=== PATIENT | male | born 1980 | race Caucasian/White ===

== ENCOUNTER 2018-03-10 13:07 | Emergency (ER) | payer MEDICAID ==
[~2018-03-10] VITALS: Ht 188 cm; Wt 68.5 kg
[~2018-03-10 13:07] MED LIST: AZIT250T PO; DIPH25CA83 PO; ONDA8TAB9 PO; PHEN30SP9 PO
[2018-03-10] MEDS ORDERED: normal saline 1000ML IV soln IVB ONE (13:40)
[2018-03-10 14:06] LABS: BASOPHILS % (AUTO) 0.2 % (0-1); EOSINOPHILS % (AUTO) 0.1 % (0-6); HEMATOCRIT 47.8 % (42.0-52.0); HEMOGLOBIN 16.7 g/dl (14.0-17.9); LYMPHOCYTES # (AUTO) 0.5 X10'3 (1.1-4.8); LYMPHOCYTES % (AUTO) 4.5 % (21-51); MEAN CORPUSCULAR HEMOGLOBIN 32.5 PG (27.0-31.0); MEAN CORPUSCULAR HGB CONC 34.9 % (33.0-36.5); MEAN CORPUSCULAR VOLUME 93.2 FL (78-98); MEAN PLATELET VOLUME 6.5 FL (7.4-10.4); MONOCYTES % (AUTO) 8.4 % (2-12); NEUTROPHILS # (AUTO) 10.4 X10'3 (1.8-7.7); NEUTROPHILS % (AUTO) 86.8 % (42-75); PLATELET COUNT 195 X10'3 (140-440); RED BLOOD COUNT 5.13 X10'6 (4.70-6.10); RED CELL DISTRIBUTION WIDTH 12.9 % (11.5-14.5)
[2018-03-10 14:20] LABS: ALANINE AMINOTRANSFERASE 61 U/L (12-78); ALBUMIN 3.8 G/DL (3.4-5.0); ALBUMIN/GLOBULIN RATIO 0.7 (1.1-1.5); ALKALINE PHOSPHATASE 113 IU/L (46-116); ANION GAP 14 (8-16); ASPARTATE AMINO TRANSFERASE 49 U/L (10-37); BILIRUBIN,TOTAL 0.6 MG/DL (0.1-1.0); BLOOD UREA NITROGEN 6 MG/DL (7-18); CALCIUM 10.2 MG/DL (8.5-10.1); CHLORIDE 95 MMOL/L (99-107); CREATININE 0.86 MG/DL (0.60-1.10); ETHANOL 0.088 GM/DL (0.0-0.010); GLUCOSE 133 MG/DL (70-104); POTASSIUM 4.1 MMOL/L (3.5-5.1); SODIUM 137 MMOL/L (135-145); TOTAL CARBON DIOXIDE 27.8 MMOL/L (24-32); TOTAL PROTEIN 9.1 G/DL (6.4-8.2); eGFR > 90 ML/MIN
[2018-03-10] MEDS ORDERED: AZI25OT PO (14:51)
[2018-03-10 15:43] LABS: URINE AMPHETAMINE SCREEN NEGATIVE (Neg); URINE BARBITUATE SCREEN NEGATIVE (Neg); URINE BENZODIAZEPINES SCREEN NEGATIVE (Neg); URINE CANNABINOID SCREEN POSITIVE (Neg); URINE COCAINE SCREEN NEGATIVE (Neg); URINE METHADONE SCREEN NEGATIVE (Neg); URINE OPIATE SCREEN NEGATIVE (Neg); URINE PHENCYCLIDINE SCREEN NEGATIVE (Neg)
[2018-03-10 15:47] VITALS: BP 119/88
== END 2018-03-10 15:52 | disposition home or self-care (01) ==
LOC: ER 13:07
DX: J18.9 Pneumonia, unspecified organism (principal); R91.1 Solitary pulmonary nodule; F17.200 Nicotine dependence, unspecified, uncomplicated; F12.10 Cannabis abuse, uncomplicated; Z79.899 Other long term (current) drug therapy
CPT/HCPCS: 36415; 71045; 80053; 80305; 80320; 85025; 93005; 96360; 99285; J7030

== ENCOUNTER 2018-04-01 22:51 | Emergency (ER) | payer MEDICAID ==
[~2018-04-01] VITALS: Ht 188 cm; Wt 70.2 kg
[~2018-04-01 22:51] MED LIST changes: +AZI25OT PO
[2018-04-02] MEDS ORDERED: albuterol 2.5 MG/3 ML nebule NEB ONE (00:10)
[2018-04-02 00:59] LABS: BASOPHILS # (AUTO) 0.1 X10'3 (0-0.2); BASOPHILS % (AUTO) 1.3 % (0-1); EOSINOPHILS # (AUTO) 0.2 X10'3 (0-0.9); EOSINOPHILS % (AUTO) 5.1 % (0-6); HEMATOCRIT 43.7 % (42.0-52.0); HEMOGLOBIN 14.7 g/dl (14.0-17.9); LYMPHOCYTES # (AUTO) 1.1 X10'3 (1.1-4.8); LYMPHOCYTES % (AUTO) 27.8 % (21-51); MEAN CORPUSCULAR HEMOGLOBIN 31.6 PG (27.0-31.0); MEAN CORPUSCULAR HGB CONC 33.6 % (33.0-36.5); MEAN PLATELET VOLUME 7.7 FL (7.4-10.4); MONOCYTES # (AUTO) 0.4 X10'3 (0-0.9); MONOCYTES % (AUTO) 9.9 % (2-12); NEUTROPHILS # (AUTO) 2.2 X10'3 (1.8-7.7); NEUTROPHILS % (AUTO) 55.9 % (42-75); PLATELET COUNT 139 X10'3 (140-440); RED BLOOD COUNT 4.65 X10'6 (4.70-6.10); RED CELL DISTRIBUTION WIDTH 12.9 % (11.5-14.5)
[2018-04-02 01:19] LABS: ALANINE AMINOTRANSFERASE 142 U/L (12-78); ALBUMIN 4.3 G/DL (3.4-5.0); ALBUMIN/GLOBULIN RATIO 1.1 (1.1-1.5); ALKALINE PHOSPHATASE 78 IU/L (46-116); ANION GAP 16 (8-16); ASPARTATE AMINO TRANSFERASE 124 U/L (10-37); BILIRUBIN,TOTAL 0.6 MG/DL (0.1-1.0); BLOOD UREA NITROGEN 6 MG/DL (7-18); BUN/CREATININE RATIO 8.1 (5.4-32.0); CALCIUM 9.8 MG/DL (8.5-10.1); CHLORIDE 97 MMOL/L (99-107); CREATININE 0.74 MG/DL (0.60-1.10); GLUCOSE 108 MG/DL (70-104); SODIUM 137 MMOL/L (135-145); TOTAL CARBON DIOXIDE 24.4 MMOL/L (24-32); TOTAL PROTEIN 8.3 G/DL (6.4-8.2); eGFR > 90 ML/MIN
[2018-04-02 01:41] LABS: D-DIMER 0.22 MG/L FEU (0-0.50)
[2018-04-02] MEDS ORDERED: iohexol 350MG/ML 100ml bottle IV ONE (01:52)
[2018-04-02] MEDS ORDERED: normal saline 1000ML IV soln IV ONE (02:35)
[2018-04-02] MEDS ORDERED: levoFLOXACIN-Levaquin 750MG/D5 150 ML IV ONE (02:35)
[2018-04-02] MEDS ORDERED: ondansetron/PF 4mg/2ml inj IV ONE (04:55)
[2018-04-02 05:15] VITALS: BP 125/73
[2018-04-02] MEDS ORDERED: AZIT250T PO (15:25)
[2018-04-02] MEDS ORDERED: ONDA4TAB9 PO (15:25)
== END 2018-04-02 05:21 | disposition home or self-care (01) ==
LOC: ER 22:52
DX: R06.02 Shortness of breath (principal); R05 Cough; F12.90 Cannabis use, unspecified, uncomplicated; Z79.899 Other long term (current) drug therapy
CPT/HCPCS: 36415; 71045; 71275; 80053; 83605; 83880; 85025; 85379; 87040; 94640; 94760; 96365; 96375; 99285; J1956; J2405; J7030; Q9967

== ENCOUNTER 2018-04-02 11:25 | Emergency (ER) | payer MEDICAID ==
[~2018-04-02] VITALS: Ht 188 cm; Wt 69.0 kg
[~2018-04-02 11:25] MED LIST changes: -AZI25OT PO
[2018-04-02 11:56] LABS: BASOPHILS % (AUTO) 0.4 % (0-1); EOSINOPHILS # (AUTO) 0.1 X10'3 (0-0.9); EOSINOPHILS % (AUTO) 1.5 % (0-6); HEMATOCRIT 43.5 % (42.0-52.0); HEMOGLOBIN 15.4 g/dl (14.0-17.9); LYMPHOCYTES # (AUTO) 0.5 X10'3 (1.1-4.8); LYMPHOCYTES % (AUTO) 11.8 % (21-51); MEAN CORPUSCULAR HEMOGLOBIN 32.9 PG (27.0-31.0); MEAN CORPUSCULAR HGB CONC 35.3 % (33.0-36.5); MEAN CORPUSCULAR VOLUME 93.2 FL (78-98); MEAN PLATELET VOLUME 7.3 FL (7.4-10.4); MONOCYTES # (AUTO) 0.4 X10'3 (0-0.9); MONOCYTES % (AUTO) 8.7 % (2-12); NEUTROPHILS # (AUTO) 3.6 X10'3 (1.8-7.7); NEUTROPHILS % (AUTO) 77.6 % (42-75); PLATELET COUNT 122 X10'3 (140-440); RED BLOOD COUNT 4.67 X10'6 (4.70-6.10); RED CELL DISTRIBUTION WIDTH 13.6 % (11.5-14.5); WHITE BLOOD COUNT 4.6 X10'3 (4.5-11.0)
[2018-04-02 12:05] LABS: INR 1.1 INR; PARTIAL THROMBOPLASTIN TIME 28 SECONDS (22-32); PROTHROMBIN TIME 10.9 SECONDS (9.0-12.0)
[2018-04-02 12:22] LABS: ALANINE AMINOTRANSFERASE 138 U/L (12-78); ALBUMIN 4.4 G/DL (3.4-5.0); ALKALINE PHOSPHATASE 82 IU/L (46-116); ANION GAP 13 (8-16); ASPARTATE AMINO TRANSFERASE 110 U/L (10-37); BILIRUBIN,TOTAL 1.5 MG/DL (0.1-1.0); BLOOD UREA NITROGEN 10 MG/DL (7-18); BUN/CREATININE RATIO 10.8 (5.4-32.0); CALCIUM 9.5 MG/DL (8.5-10.1); CHLORIDE 98 MMOL/L (99-107); CREATININE 0.93 MG/DL (0.60-1.10); GLUCOSE 113 MG/DL (70-104); SODIUM 140 MMOL/L (135-145); TOTAL CARBON DIOXIDE 28.6 MMOL/L (24-32); TOTAL PROTEIN 8.6 G/DL (6.4-8.2); eGFR 90 ML/MIN
[2018-04-02] MEDS ORDERED: AZIT250T PO (15:25)
[2018-04-02] MEDS ORDERED: ONDA4TAB9 PO (15:25)
[2018-04-02] MEDS ORDERED: ondansetron 4mg rapidly disintigrating tab PO ONE (15:25)
[2018-04-02] MEDS ORDERED: phenobarbital inj 260 MG in normal saline 100ml IV soln 99 ML IV STA (15:28)
[2018-04-02] MEDS ORDERED: ondansetron/PF 4mg/2ml inj IV ONE (15:30)
[2018-04-02] MEDS ORDERED: thiamine inj. 100 MG in normal saline 100ml IV soln 99 ML IV ONE (15:30)
[2018-04-02] MEDS ORDERED: normal saline 1000ML IV soln IVB ONE (15:30)
[2018-04-02] MEDS: magnesium/D5W IVPB 100 ML IV SCH ×2 (15:59→18:11)
[2018-04-02 16:02] LABS: MAGNESIUM 1.7 MG/DL (1.5-2.4)
[2018-04-02 18:55] VITALS: BP 126/77
== END 2018-04-02 19:42 | disposition home or self-care (01) ==
LOC: ER 11:26
DX: J20.9 Acute bronchitis, unspecified (principal); K52.9 Noninfective gastroenteritis and colitis, unspecified; G40.89 Other seizures; F10.230 Alcohol dependence with withdrawal, uncomplicated; F12.10 Cannabis abuse, uncomplicated; Z79.899 Other long term (current) drug therapy
CPT/HCPCS: 36415; 70450; 80053; 80320; 83735; 84484; 85025; 85610; 85730; 93005; 96365; 96366; 96367; 96368; 96375; 99285; J2405; J2560; J3411; J7030

== ENCOUNTER 2018-04-17 16:21 | Emergency (ER) | payer MEDICAID ==
[~2018-04-17] VITALS: Ht 188 cm; Wt 66.1 kg
[~2018-04-17 16:21] MED LIST changes: +ONDA4TAB9 PO
[2018-04-17 16:57] LABS: BASOPHILS % (AUTO) 0.3 % (0-1); EOSINOPHILS # (AUTO) 0.1 X10'3 (0-0.9); EOSINOPHILS % (AUTO) 1.3 % (0-6); HEMATOCRIT 42.7 % (42.0-52.0); LYMPHOCYTES # (AUTO) 0.4 X10'3 (1.1-4.8); LYMPHOCYTES % (AUTO) 8.1 % (21-51); MEAN CORPUSCULAR HEMOGLOBIN 32.8 PG (27.0-31.0); MEAN CORPUSCULAR HGB CONC 35.2 % (33.0-36.5); MEAN CORPUSCULAR VOLUME 93.2 FL (78-98); MEAN PLATELET VOLUME 7.7 FL (7.4-10.4); MONOCYTES # (AUTO) 0.4 X10'3 (0-0.9); MONOCYTES % (AUTO) 8.2 % (2-12); NEUTROPHILS # (AUTO) 4.3 X10'3 (1.8-7.7); NEUTROPHILS % (AUTO) 82.1 % (42-75); PLATELET COUNT 113 X10'3 (140-440); RED BLOOD COUNT 4.58 X10'6 (4.70-6.10); RED CELL DISTRIBUTION WIDTH 13.4 % (11.5-14.5); WHITE BLOOD COUNT 5.2 X10'3 (4.5-11.0)
[2018-04-17 17:05] LABS: PROTHROMBIN TIME 10.6 SECONDS (9.0-12.0)
[2018-04-17 17:11] LABS: ALANINE AMINOTRANSFERASE 170 U/L (12-78); ALBUMIN/GLOBULIN RATIO 1.2 (1.1-1.5); ALKALINE PHOSPHATASE 83 IU/L (46-116); ANION GAP 15 (8-16); ASPARTATE AMINO TRANSFERASE 114 U/L (10-37); BILIRUBIN,TOTAL 1.6 MG/DL (0.1-1.0); BLOOD UREA NITROGEN 24 MG/DL (7-18); BUN/CREATININE RATIO 19.2 (5.4-32.0); CALCIUM 10.8 MG/DL (8.5-10.1); CHLORIDE 89 MMOL/L (99-107); CREATININE 1.25 MG/DL (0.60-1.10); GLUCOSE 140 MG/DL (70-104); POTASSIUM 3.8 MMOL/L (3.5-5.1); SODIUM 133 MMOL/L (135-145); TOTAL CARBON DIOXIDE 28.9 MMOL/L (24-32); TOTAL PROTEIN 9.1 G/DL (6.4-8.2); eGFR 64 ML/MIN
[2018-04-17] MEDS ORDERED: meclizine 12.5mg tablet PO ONE (19:15)
[2018-04-17] MEDS ORDERED: ondansetron 4mg rapidly disintigrating tab PO ONE (19:15)
[2018-04-17 20:04] LABS: HEMOGLOBIN A1C 5.1 % (4.5-6.2)
[2018-04-17] MEDS ORDERED: normal saline 1000ml 1,000 ML IV ONE (20:15)
[2018-04-17 20:33] LABS: CLARITY,URINE CLEAR (Clear); COLOR,URINE YELLOW (Yellow); GLUCOSE, URINE NEGATIVE (Neg); KETONES,URINE 40 mg/dl (Neg); LEUKOCYTE ESTERASE ,URINE NEGATIVE (Neg); PROTEIN,URINE >=300 mg/dl (Neg)
[2018-04-17 20:44] LABS: URINE AMPHETAMINE SCREEN NEGATIVE (Neg); URINE BARBITUATE SCREEN POSITIVE (Neg); URINE BENZODIAZEPINES SCREEN NEGATIVE (Neg); URINE CANNABINOID SCREEN POSITIVE (Neg); URINE COCAINE SCREEN NEGATIVE (Neg); URINE METHADONE SCREEN NEGATIVE (Neg); URINE OPIATE SCREEN NEGATIVE (Neg); URINE PHENCYCLIDINE SCREEN NEGATIVE (Neg)
[2018-04-17 20:45] LABS: UA COLLECTION TYPE CLN CATCH MIDSTREAM
[2018-04-17 20:46] LABS: NITRITES, URINE NEGATIVE (Neg); OCCULT BLOOD,URINE TRACE-LYSED (Neg)
[2018-04-17 20:47] LABS: BACTERIA,URINE FEW /HPF (Neg); HYALINE CASTS 0-3 /LPF (NEGATIVE); RBC,URINE 0-2 /HPF (0-2); SQUAMOUS EPITHELIAL CELL,UR FEW /LPF (FEW); WBC,URINE NONE SEEN /HPF (0-4)
[2018-04-17] MEDS ORDERED: normal saline 1000ML IV soln IVB ONE (22:25)
[2018-04-17] MEDS ORDERED: ONDA4TAB9 PO (22:34)
[2018-04-17] MEDS ORDERED: MECL-111 PO (22:34)
[2018-04-17 23:05] VITALS: BP 135/80
== END 2018-04-17 23:16 | disposition home or self-care (01) ==
LOC: ER 16:22
DX: R42 Dizziness and giddiness (principal); E86.0 Dehydration; R41.0 Disorientation, unspecified; R11.2 Nausea with vomiting, unspecified; I45.81 Long QT syndrome; F12.90 Cannabis use, unspecified, uncomplicated; Z79.899 Other long term (current) drug therapy
CPT/HCPCS: 36415; 80053; 80305; 81001; 82948; 83036; 84439; 84443; 85025; 85610; 93005; 96360; 96361; 99285; J7030; J8597

== ENCOUNTER 2018-07-04 23:06 | Emergency (ER) | payer MEDICAID ==
[~2018-07-04] VITALS: Ht 188 cm; Wt 72.0 kg
[~2018-07-04 23:06] MED LIST changes: +HYDR-3965 PO; +MECL-111 PO
[2018-07-04 23:25] VITALS: BP 129/75
[2018-07-04] MEDS ORDERED: CefTRIAXone 1000mg IM Kit (w/lidocaine diluent) IM ONE (23:35)
[2018-07-04] MEDS ORDERED: clindamycin 150mg capsule PO STA (23:35)
[2018-07-04] MEDS ORDERED: CLIN150C2 PO (23:44)
[2018-07-04] MEDS ORDERED: TETanus/Pertussis (Acell)/Diphther VAC/PF (Tdap-Adult) 0.5ml syringe IMVAC ONE (23:50)
[2018-07-04] MEDS ORDERED: tetanus & diphtheria toxoid (Td) vaccine 0.5ml IMVAC ONE (23:50)
== END 2018-07-05 | disposition home or self-care (01) ==
LOC: ER 23:07
DX: L02.214 Cutaneous abscess of groin (principal); L03.314 Cellulitis of groin; F12.90 Cannabis use, unspecified, uncomplicated
CPT/HCPCS: 96372; 99283; J0696; 90715

== ENCOUNTER 2018-07-10 10:43 | Outpatient (CLI) | payer MEDICAID ==
[~2018-07-10 10:43] MED LIST changes: +CLIN150C2 PO
== END 2018-07-10 23:59 | disposition home or self-care (01) ==
LOC: RAD 10:43
PROVIDERS: ATTEND Family Medicine
DX: G40.909 Epilepsy, unspecified, not intractable, without status epilepticus (principal); R74.8 Abnormal levels of other serum enzymes; F17.200 Nicotine dependence, unspecified, uncomplicated
CPT/HCPCS: 95816

== ENCOUNTER 2018-08-14 15:43 | Emergency (ER) | payer MEDICAID ==
[~2018-08-14] VITALS: Ht 188 cm; Wt 71.0 kg
[~2018-08-14 15:43] MED LIST changes: -CLIN150C2 PO; -HYDR-3965 PO; -ONDA4TAB9 PO
[2018-08-14] MEDS ORDERED: folic acid 1mg/0.2ml inj IV ONE (15:55)
[2018-08-14] MEDS ORDERED: gabapentin 300mg capsule PO ONE (15:55)
[2018-08-14] MEDS ORDERED: LORazepam 2 mg/ml vial IV ONE (15:55)
[2018-08-14] MEDS ORDERED: normal saline 1000ML IV soln IV ONE (15:55)
[2018-08-14] MEDS ORDERED: thiamine 100mg/ml 2ml inj. IV ONE (15:55)
[2018-08-14] MEDS ORDERED: ondansetron/PF 4mg/2ml inj IV ONE (15:55)
[2018-08-14] MEDS ORDERED: GABA300C PO (16:32)
[2018-08-14] MEDS ORDERED: potassium Cl oral solution 20 MEQ/15 ML PO ONE (16:35)
[2018-08-14 16:36] LABS: BASOPHILS % (AUTO) 0.4 % (0-1); EOSINOPHILS # (AUTO) 0.2 X10'3 (0-0.9); EOSINOPHILS % (AUTO) 2.4 % (0-6); HEMATOCRIT 47.2 % (42.0-52.0); LYMPHOCYTES # (AUTO) 0.7 X10'3 (1.1-4.8); LYMPHOCYTES % (AUTO) 10.3 % (21-51); MEAN CORPUSCULAR HEMOGLOBIN 32.9 PG (27.0-31.0); MEAN CORPUSCULAR HGB CONC 33.9 % (33.0-36.5); MEAN CORPUSCULAR VOLUME 96.9 FL (78-98); MEAN PLATELET VOLUME 7.8 FL (7.4-10.4); MONOCYTES # (AUTO) 0.7 X10'3 (0-0.9); MONOCYTES % (AUTO) 10.3 % (2-12); NEUTROPHILS # (AUTO) 4.9 X10'3 (1.8-7.7); NEUTROPHILS % (AUTO) 76.6 % (42-75); PLATELET COUNT 191 X10'3 (140-440); RED BLOOD COUNT 4.87 X10'6 (4.70-6.10); RED CELL DISTRIBUTION WIDTH 13.9 % (11.5-14.5); WHITE BLOOD COUNT 6.4 X10'3 (4.5-11.0)
[2018-08-14 16:50] LABS: ALANINE AMINOTRANSFERASE 33 U/L (12-78); ALBUMIN 4.7 G/DL (3.4-5.0); ALBUMIN/GLOBULIN RATIO 1.2 (1.1-1.5); ALKALINE PHOSPHATASE 75 IU/L (46-116); ANION GAP 14 (8-16); ASPARTATE AMINO TRANSFERASE 32 U/L (10-37); BILIRUBIN,TOTAL 1.1 MG/DL (0.1-1.0); BLOOD UREA NITROGEN 9 MG/DL (7-18); BUN/CREATININE RATIO 9.6 (5.4-32.0); CALCIUM 9.8 MG/DL (8.5-10.1); CHLORIDE 98 MMOL/L (99-107); CREATININE 0.94 MG/DL (0.60-1.10); GLUCOSE 166 MG/DL (70-104); POTASSIUM 3.5 MMOL/L (3.5-5.1); SODIUM 142 MMOL/L (135-145); TOTAL CARBON DIOXIDE 30.2 MMOL/L (24-32); TOTAL PROTEIN 8.6 G/DL (6.4-8.2); eGFR 89 ML/MIN
[2018-08-14 17:35] VITALS: BP 123/99
== END 2018-08-14 17:44 | disposition home or self-care (01) ==
LOC: ER 15:44
DX: F10.239 Alcohol dependence with withdrawal, unspecified (principal); R10.9 Unspecified abdominal pain; F17.200 Nicotine dependence, unspecified, uncomplicated; F12.90 Cannabis use, unspecified, uncomplicated; Z88.8 Allergy status to other drugs, medicaments and biological substances; Z79.2 Long term (current) use of antibiotics; Y90.9 Presence of alcohol in blood, level not specified; Z79.899 Other long term (current) drug therapy
CPT/HCPCS: 36415; 80053; 85025; 96374; 96375; 99284; J2405; J3411; J3490; 96376; J2060

== ENCOUNTER 2018-08-26 23:00 | Emergency (ER) | payer MEDICAID ==
[~2018-08-26] VITALS: Ht 188 cm; Wt 75.0 kg
[~2018-08-26 23:00] MED LIST changes: +GABA300C PO
[2018-08-26 23:07] VITALS: BP 109/77
[2018-08-26] MEDS ORDERED: KEN0.1O TP (23:20)
== END 2018-08-26 23:35 | disposition home or self-care (01) ==
LOC: ER 23:01
DX: R21 Rash and other nonspecific skin eruption (principal); L53.8 Other specified erythematous conditions; F12.90 Cannabis use, unspecified, uncomplicated; Z88.8 Allergy status to other drugs, medicaments and biological substances
CPT/HCPCS: 99283

== ENCOUNTER 2019-01-25 10:28 | Emergency (ER) | payer MEDICAID ==
[~2019-01-25] VITALS: Ht 188 cm; Wt 77.0 kg
[2019-01-25] MEDS ORDERED: NAPR-56 PO (11:55)
[2019-01-25] MEDS ORDERED: TRAM50TA2 PO (11:55)
[2019-01-25] MEDS ORDERED: HYDR-4353 PO ×2 (12:00→12:01)
[2019-01-25 12:13] VITALS: BP 122/74
== END 2019-01-25 12:15 | disposition home or self-care (01) ==
LOC: ER 10:28
DX: M25.561 Pain in right knee (principal); F12.90 Cannabis use, unspecified, uncomplicated; Z88.1 Allergy status to other antibiotic agents; Z88.6 Allergy status to analgesic agent; Z79.899 Other long term (current) drug therapy; W10.8XXA Fall (on) (from) other stairs and steps, initial encounter; Y93.89 Activity, other specified; Y92.240 Courthouse as the place of occurrence of the external cause; Y99.8 Other external cause status
CPT/HCPCS: 73564; 99284

== ENCOUNTER 2019-02-06 09:15 | Emergency (ER) | payer MEDICAID ==
[~2019-02-06] VITALS: Ht 188 cm; Wt 68.8 kg
[~2019-02-06 09:15] MED LIST changes: +NAPR-56 PO; +TRAM50TA2 PO
[2019-02-06 11:40] LABS: ALANINE AMINOTRANSFERASE 235 U/L (12-78); ALBUMIN 4.9 G/DL (3.4-5.0); ALBUMIN/GLOBULIN RATIO 1.3 (1.1-1.5); ALKALINE PHOSPHATASE 87 IU/L (46-116); ANION GAP 24 (8-16); ASPARTATE AMINO TRANSFERASE 224 U/L (10-37); BILIRUBIN,TOTAL 2.1 MG/DL (0.1-1.0); BLOOD UREA NITROGEN 21 MG/DL (7-18); BUN/CREATININE RATIO 12.4 (5.4-32.0); CALCIUM 9.9 MG/DL (8.5-10.1); CHLORIDE 89 MMOL/L (99-107); CREATININE 1.69 MG/DL (0.60-1.10); GLUCOSE 103 MG/DL (70-104); LIPASE 234 U/L (73-393); MAGNESIUM 1.7 MG/DL (1.5-2.4); POTASSIUM 3.8 MMOL/L (3.5-5.1); SODIUM 137 MMOL/L (135-145); TOTAL CARBON DIOXIDE 24.3 MMOL/L (24-32); TOTAL PROTEIN 8.7 G/DL (6.4-8.2); eGFR 45 ML/MIN
[2019-02-06 12:01] LABS: BASOPHILS % (AUTO) 0.2 % (0-1); EOSINOPHILS % (AUTO) 0 % (0-6); HEMATOCRIT 48.7 % (42.0-52.0); HEMOGLOBIN 17.2 g/dl (14.0-17.9); LYMPHOCYTES # (AUTO) 0.3 X10'3 (1.1-4.8); LYMPHOCYTES % (AUTO) 4.6 % (21-51); MEAN CORPUSCULAR HEMOGLOBIN 32.3 PG (27.0-31.0); MEAN CORPUSCULAR HGB CONC 35.3 g/dL (33.0-36.5); MEAN CORPUSCULAR VOLUME 91.4 FL (78-98); MEAN PLATELET VOLUME 8.2 FL (7.4-10.4); MONOCYTES # (AUTO) 0.8 X10'3 (0-0.9); MONOCYTES % (AUTO) 10.9 % (2-12); NEUTROPHILS # (AUTO) 6.1 X10'3 (1.8-7.7); NEUTROPHILS % (AUTO) 84.3 % (42-75); PLATELET COUNT 133 X10'3 (140-440); RED BLOOD COUNT 5.33 X10'6 (4.70-6.10); RED CELL DISTRIBUTION WIDTH 13.7 % (11.5-14.5); WHITE BLOOD COUNT 7.2 X10'3 (4.5-11.0)
[2019-02-06] MEDS ORDERED: normal saline 1000ml 1,000 ML IV ONE (12:20)
[2019-02-06] MEDS ORDERED: ONDA4TAB6 PO (12:42)
--- NOTE | 2019-02-06 13:43 | NUR ---
discussed patient's drinking with him and kandice garcia patient's last regular drinking pattern was 2 days ago, patient attempted to have a beer last night despite vomiting and diarrhea patient is exhibiting signs of etoh withdrawal: shaky with intentional movement of arms, sweating, temp of 99.4, kandice agrcia aware, orders recieved still discharging patient
[2019-02-06] MEDS ORDERED: chlordiazePOXIDE 25mg capsule PO ONE (13:45)
[2019-02-06] MEDS ORDERED: ondansetron 4mg rapidly disintigrating tab PO ONE (13:45)
[2019-02-06 14:13] VITALS: BP 132/65
== END 2019-02-06 14:14 | disposition home or self-care (01) ==
LOC: ER 09:15
DX: R11.2 Nausea with vomiting, unspecified (principal); R19.7 Diarrhea, unspecified; R05 Cough; F12.90 Cannabis use, unspecified, uncomplicated; Z88.8 Allergy status to other drugs, medicaments and biological substances; Z79.899 Other long term (current) drug therapy
CPT/HCPCS: 36415; 80053; 83690; 83735; 85025; 96360; 99283; J7030

== ENCOUNTER 2019-03-29 07:44 | Emergency (ER) | payer MEDICAID ==
[~2019-03-29] VITALS: Ht 188 cm; Wt 75.0 kg
[~2019-03-29 07:44] MED LIST changes: -NAPR-56 PO; +ONDA4TAB6 PO; -TRAM50TA2 PO
[2019-03-29] MEDS ORDERED: morphine 4 MG/ML inj SYRINge IV ONE (08:15)
[2019-03-29] MEDS ORDERED: proCHLORperazine 10 MG/2 ml inj IV ONE (08:15)
[2019-03-29] MEDS ORDERED: normal saline 1000ML IV soln IVB ONE (08:15)
[2019-03-29 08:28] LABS: ALANINE AMINOTRANSFERASE 133 U/L (12-78); ALBUMIN 4.7 G/DL (3.4-5.0); ALBUMIN/GLOBULIN RATIO 1.2 (1.1-1.5); ALKALINE PHOSPHATASE 87 IU/L (46-116); AMYLASE 63 U/L (25-115); ANION GAP 13 (8-16); ASPARTATE AMINO TRANSFERASE 136 U/L (10-37); BILIRUBIN,TOTAL 1.3 MG/DL (0.1-1.0); BLOOD UREA NITROGEN 36 MG/DL (7-18); BUN/CREATININE RATIO 9.5 (5.4-32.0); CALCIUM 9.5 MG/DL (8.5-10.1); CHLORIDE 87 MMOL/L (99-107); CREATININE 3.78 MG/DL (0.60-1.10); GLUCOSE 204 MG/DL (70-104); LIPASE 1078 U/L (73-393); SODIUM 131 MMOL/L (135-145); TOTAL CARBON DIOXIDE 30.6 MMOL/L (24-32); TOTAL PROTEIN 8.7 G/DL (6.4-8.2); eGFR 18 ML/MIN
[2019-03-29 08:35] LABS: BASOPHILS # (AUTO) 0.1 X10'3 (0-0.2); BASOPHILS % (AUTO) 0.6 % (0-1); EOSINOPHILS % (AUTO) 0.2 % (0-6); HEMATOCRIT 47.8 % (42.0-52.0); HEMOGLOBIN 16.7 g/dl (14.0-17.9); LYMPHOCYTES # (AUTO) 0.5 X10'3 (1.1-4.8); LYMPHOCYTES % (AUTO) 5.7 % (21-51); MEAN CORPUSCULAR HEMOGLOBIN 33.2 PG (27.0-31.0); MEAN PLATELET VOLUME 8.2 FL (7.4-10.4); MONOCYTES % (AUTO) 10.9 % (2-12); NEUTROPHILS # (AUTO) 7.3 X10'3 (1.8-7.7); NEUTROPHILS % (AUTO) 82.6 % (42-75); PLATELET COUNT 129 X10'3 (140-440); RED BLOOD COUNT 5.03 X10'6 (4.70-6.10); RED CELL DISTRIBUTION WIDTH 13.9 % (11.5-14.5); WHITE BLOOD COUNT 8.8 X10'3 (4.5-11.0)
[2019-03-29] MEDS ORDERED: potassium Cl 10 mEq/100mL bag IV ONE (08:35)
--- NOTE | 2019-03-29 09:32 | NUR ---
Romina RN: Patient back from CT. Patient on senior training specialist, K+ infusing. Patient has warm blankets. No other needs at this time.
[2019-03-29] MEDS ORDERED: ONDA4TAB6 PO (10:33)
[2019-03-29 10:52] VITALS: BP 130/66
== END 2019-03-29 10:54 | disposition home or self-care (01) ==
LOC: ER 07:45
DX: K85.90 Acute pancreatitis without necrosis or infection, unspecified (principal); I88.0 Nonspecific mesenteric lymphadenitis; R11.10 Vomiting, unspecified; R10.84 Generalized abdominal pain; F12.90 Cannabis use, unspecified, uncomplicated; Z88.8 Allergy status to other drugs, medicaments and biological substances
CPT/HCPCS: 36415; 74176; 80053; 82150; 83690; 85025; 85610; 96361; 96374; 96375; 99284; J0780; J2270; J3480; J7030

== ENCOUNTER 2019-05-04 22:44 | Emergency (ER) | payer MEDICAID, OTHER ==
[~2019-05-04] VITALS: Ht 188 cm; Wt 72.0 kg
[~2019-05-04 22:44] MED LIST changes: +CHLO25CA10 PO
[2019-05-04] MEDS ORDERED: ondansetron/PF 4mg/2ml inj IV ONE (22:50)
[2019-05-04] MEDS ORDERED: LORazepam 2 mg/ml vial IV ONE (22:50)
[2019-05-04] MEDS ORDERED: normal saline 1000ML IV soln IVB ONE (22:50)
[2019-05-04] MEDS ORDERED: haloperidol lactate 5mg/ml inj IM ONE ×2 (22:50→23:35)
[2019-05-04] MEDS ORDERED: diphenhydrAMINE 50 mg/ml inj IV ONE (22:50)
[2019-05-04 23:19] LABS: BASOPHILS # (AUTO) 0.1 X10'3 (0-0.2); EOSINOPHILS % (AUTO) 0 % (0-6); HEMATOCRIT 44.6 % (42.0-52.0); HEMOGLOBIN 15.5 g/dl (14.0-17.9); LYMPHOCYTES # (AUTO) 0.5 X10'3 (1.1-4.8); LYMPHOCYTES % (AUTO) 7.6 % (21-51); MEAN CORPUSCULAR HEMOGLOBIN 33.4 PG (27.0-31.0); MEAN CORPUSCULAR HGB CONC 34.7 g/dL (33.0-36.5); MEAN CORPUSCULAR VOLUME 96.2 FL (78-98); MEAN PLATELET VOLUME 7.7 FL (7.4-10.4); MONOCYTES # (AUTO) 0.6 X10'3 (0-0.9); MONOCYTES % (AUTO) 8.9 % (2-12); NEUTROPHILS # (AUTO) 5.5 X10'3 (1.8-7.7); NEUTROPHILS % (AUTO) 82.5 % (42-75); PLATELET COUNT 174 X10'3 (140-440); RED BLOOD COUNT 4.63 X10'6 (4.70-6.10); RED CELL DISTRIBUTION WIDTH 13.4 % (11.5-14.5); WHITE BLOOD COUNT 6.6 X10'3 (4.5-11.0)
[2019-05-04 23:28] LABS: ALANINE AMINOTRANSFERASE 142 U/L (12-78); ALBUMIN 4.7 G/DL (3.4-5.0); ALBUMIN/GLOBULIN RATIO 1.2 (1.1-1.5); ALKALINE PHOSPHATASE 85 IU/L (46-116); ANION GAP 27 (8-16); ASPARTATE AMINO TRANSFERASE 173 U/L (10-37); BILIRUBIN,TOTAL 1.5 MG/DL (0.1-1.0); BLOOD UREA NITROGEN 11 MG/DL (7-18); BUN/CREATININE RATIO 7.9 (5.4-32.0); CALCIUM 9.8 MG/DL (8.5-10.1); CHLORIDE 93 MMOL/L (99-107); CREATININE 1.39 MG/DL (0.60-1.10); GLUCOSE 107 MG/DL (70-104); LIPASE 373 U/L (73-393); POTASSIUM 3.9 MMOL/L (3.5-5.1); SODIUM 139 MMOL/L (135-145); TOTAL CARBON DIOXIDE 19.2 MMOL/L (24-32); TOTAL PROTEIN 8.6 G/DL (6.4-8.2); eGFR 57 ML/MIN
[2019-05-05 00:17] VITALS: BP 136/87
[2019-05-05] MEDS ORDERED: PROM25TA14 PO (02:19)
== END 2019-05-05 02:31 | disposition home or self-care (01) ==
LOC: ER 22:45
DX: R11.2 Nausea with vomiting, unspecified (principal); R50.9 Fever, unspecified; F12.90 Cannabis use, unspecified, uncomplicated; F17.200 Nicotine dependence, unspecified, uncomplicated; Z88.8 Allergy status to other drugs, medicaments and biological substances; Z79.899 Other long term (current) drug therapy
CPT/HCPCS: 36415; 80053; 83690; 85025; 96372; 96374; 96375; 99283; J1200; J1630; J2060; J2405; J7030

== ENCOUNTER 2019-07-22 20:54 | Emergency (ER) | payer MEDICAID ==
[~2019-07-22] VITALS: Ht 188 cm; Wt 68.0 kg
[~2019-07-22 20:54] MED LIST changes: +PROM25TA14 PO
[2019-07-22] MEDS ORDERED: normal saline 1000ML IV soln IVB ONE (21:35)
[2019-07-22] MEDS ORDERED: pantoprazole 40 MG vial IV ONE (21:35)
[2019-07-22 22:09] LABS: BASOPHILS % (AUTO) 0.2 % (0-1); EOSINOPHILS % (AUTO) 0.4 % (0-6); HEMATOCRIT 41.4 % (42.0-52.0); HEMOGLOBIN 14.4 g/dl (14.0-17.9); LYMPHOCYTES # (AUTO) 0.7 X10'3 (1.1-4.8); LYMPHOCYTES % (AUTO) 12.6 % (21-51); MEAN CORPUSCULAR HGB CONC 34.7 g/dL (33.0-36.5); MEAN CORPUSCULAR VOLUME 98.1 FL (78-98); MONOCYTES # (AUTO) 0.8 X10'3 (0-0.9); MONOCYTES % (AUTO) 14.4 % (2-12); NEUTROPHILS # (AUTO) 3.9 X10'3 (1.8-7.7); NEUTROPHILS % (AUTO) 72.4 % (42-75); PLATELET COUNT 117 X10'3 (140-440); RED BLOOD COUNT 4.22 X10'6 (4.70-6.10); RED CELL DISTRIBUTION WIDTH 12.9 % (11.5-14.5); WHITE BLOOD COUNT 5.4 X10'3 (4.5-11.0)
[2019-07-22 22:20] LABS: PARTIAL THROMBOPLASTIN TIME 25 SECONDS (22-32)
[2019-07-22] MEDS: chlordiazePOXIDE 25mg capsule PO ONE (22:21)
[2019-07-22 22:22] LABS: ALANINE AMINOTRANSFERASE 50 U/L (12-78); ALBUMIN 4.5 G/DL (3.4-5.0); ALBUMIN/GLOBULIN RATIO 1.3 (1.1-1.5); ALKALINE PHOSPHATASE 78 IU/L (46-116); ANION GAP 13 (8-16); ASPARTATE AMINO TRANSFERASE 46 U/L (10-37); BILIRUBIN,TOTAL 0.9 MG/DL (0.1-1.0); BLOOD UREA NITROGEN 16 MG/DL (7-18); BUN/CREATININE RATIO 5.8 (5.4-32.0); CALCIUM 9.2 MG/DL (8.5-10.1); CHLORIDE 92 MMOL/L (99-107); CREATININE 2.74 MG/DL (0.60-1.10); GLUCOSE 110 MG/DL (70-104); POTASSIUM 3.3 MMOL/L (3.5-5.1); SODIUM 137 MMOL/L (135-145); TOTAL CARBON DIOXIDE 32.2 MMOL/L (24-32); TOTAL PROTEIN 8.1 G/DL (6.4-8.2); eGFR 26 ML/MIN
[2019-07-22 23:13] LABS: CLARITY,URINE CLEAR (Clear); COLOR,URINE AMBER (Yellow); GLUCOSE, URINE NEGATIVE (Neg); KETONES,URINE 15 mg/dl (Neg); LEUKOCYTE ESTERASE ,URINE NEGATIVE (Neg); NITRITES, URINE NEGATIVE (Neg); OCCULT BLOOD,URINE TRACE-INTACT (Neg); PH,URINE 6.5 (4.8-8.0); PROTEIN,URINE 100 mg/dl (Neg)
[2019-07-22 23:16] LABS: UA COLLECTION TYPE VOIDED
[2019-07-22 23:19] LABS: BACTERIA,URINE 1+ /HPF (Neg); HYALINE CASTS >30 /LPF (NEGATIVE); MUCUS STRANDS NONE SEEN /LPF (Neg); RBC,URINE 0-2 /HPF (0-2); SQUAMOUS EPITHELIAL CELL,UR MODERATE /LPF (FEW); WBC,URINE 0-4 /HPF (0-4)
[2019-07-23] MEDS ORDERED: CHLO25CA10 PO (00:34)
[2019-07-23 00:41] VITALS: BP 118/70
[2019-08-02] MEDS: chlordiazePOXIDE 25mg capsule PO ONE (12:03)
== END 2019-07-23 00:54 | disposition home or self-care (01) ==
LOC: ER 20:54
DX: F10.239 Alcohol dependence with withdrawal, unspecified (principal); R11.10 Vomiting, unspecified; R56.9 Unspecified convulsions; F12.90 Cannabis use, unspecified, uncomplicated; Z88.8 Allergy status to other drugs, medicaments and biological substances; Z79.899 Other long term (current) drug therapy; Y90.9 Presence of alcohol in blood, level not specified
CPT/HCPCS: 36415; 71045; 80053; 81001; 85025; 85610; 85730; 93005; 96361; 96374; 99284; C9113; J7030

== ENCOUNTER 2019-11-05 11:31 | Inpatient (IN) | payer MEDICAID ==
[~2019-11-05] VITALS: Ht 188 cm; Wt 77.3 kg
[~2019-11-05 11:31] MED LIST changes: -MECL-111 PO; +MECL-159 PO
[2019-11-05 12:59] LABS: BASOPHILS # (AUTO) 0.1 X10'3 (0-0.2); EOSINOPHILS # (AUTO) 0.1 X10'3 (0-0.9); EOSINOPHILS % (AUTO) 1.1 % (0-6); HEMATOCRIT 47.4 % (42.0-52.0); HEMOGLOBIN 16.2 g/dl (14.0-17.9); LYMPHOCYTES # (AUTO) 0.8 X10'3 (1.1-4.8); MEAN CORPUSCULAR HEMOGLOBIN 33.4 PG (27.0-31.0); MEAN CORPUSCULAR HGB CONC 34.2 g/dL (33.0-36.5); MEAN CORPUSCULAR VOLUME 97.7 FL (78-98); MEAN PLATELET VOLUME 7.5 FL (7.4-10.4); MONOCYTES # (AUTO) 0.3 X10'3 (0-0.9); MONOCYTES % (AUTO) 3.8 % (2-12); NEUTROPHILS # (AUTO) 6.2 X10'3 (1.8-7.7); NEUTROPHILS % (AUTO) 83.1 % (42-75); PLATELET COUNT 234 X10'3 (140-440); RED BLOOD COUNT 4.86 X10'6 (4.70-6.10); RED CELL DISTRIBUTION WIDTH 13.7 % (11.5-14.5); WHITE BLOOD COUNT 7.4 X10'3 (4.5-11.0)
[2019-11-05 13:05] LABS: D-DIMER 0.24 MG/L FEU (0-0.50); PARTIAL THROMBOPLASTIN TIME 27 SECONDS (22-32)
[2019-11-05 13:08] LABS: ALANINE AMINOTRANSFERASE 83 U/L (12-78); ALBUMIN 4.4 G/DL (3.4-5.0); ALBUMIN/GLOBULIN RATIO 1.1 (1.1-1.5); ALKALINE PHOSPHATASE 104 IU/L (46-116); ANION GAP 20 (8-16); ASPARTATE AMINO TRANSFERASE 71 U/L (10-37); BILIRUBIN,TOTAL 0.9 MG/DL (0.1-1.0); BLOOD UREA NITROGEN 7 MG/DL (7-18); BUN/CREATININE RATIO 6.9 (5.4-32.0); CALCIUM 9.4 MG/DL (8.5-10.1); CHLORIDE 100 MMOL/L (99-107); CREATININE 1.01 MG/DL (0.60-1.10); GLUCOSE 64 MG/DL (70-104); POTASSIUM 3.8 MMOL/L (3.5-5.1); SODIUM 141 MMOL/L (135-145); TOTAL CARBON DIOXIDE 20.6 MMOL/L (24-32); TOTAL PROTEIN 8.5 G/DL (6.4-8.2); eGFR 81 ML/MIN
[2019-11-05] MEDS ORDERED: normal saline 1000ML IV soln IVB ONE ×2 (13:20→15:50)
[2019-11-05 13:36] LABS: ABG BASE EXCESS -6.2 mmol/L (-2.0-3.0); ABG HCO3 17.3 mmol/L (22.0-26.0); ABG OXYGEN SATURATION 96.2 % (95-98); ABG PCO2 (T) 29.7 mmHg (35.0-45.0); ABG PH (T) 7.384 (7.350-7.450); ALLEN'S TEST Positive; FMetHb 0.2 % (0.3-1.12); FO2Hb 93.1 % (94-100); TOTAL HEMOGLOBIN 16.1 G/dl (14.0-17.9)
[2019-11-05 13:37] LABS: CLARITY,URINE CLEAR (Clear); COLOR,URINE YELLOW (Yellow); GLUCOSE, URINE NEGATIVE (Neg); KETONES,URINE 15 mg/dl (Neg); LEUKOCYTE ESTERASE ,URINE NEGATIVE (Neg); NITRITES, URINE NEGATIVE (Neg); OCCULT BLOOD,URINE SMALL (Neg); PROTEIN,URINE 100 mg/dl (Neg); UROBILINOGEN,URINE 0.2 E.U/dL (0.2-1.0)
[2019-11-05 13:39] LABS: UA COLLECTION TYPE CLN CATCH MIDSTREAM
[2019-11-05] MEDS ORDERED: iohexol 350MG/ML 100ml bottle IV ONE (13:42)
[2019-11-05 13:44] LABS: BACTERIA,URINE NONE SEEN /HPF (Neg); COARSE GRANULAR CAST 0-3 /LPF (NEGATIVE); FINE GRANULAR CAST 0-3 /LPF (NEGATIVE); HYALINE CASTS >30 /LPF (NEGATIVE); MUCUS STRANDS MODERATE /LPF (Neg); RBC,URINE 0-2 /HPF (0-2); SQUAMOUS EPITHELIAL CELL,UR FEW /LPF (FEW); TRANSITIONAL EPI CELLS,URINE FEW /HPF; WBC,URINE 0-4 /HPF (0-4)
[2019-11-05] MEDS ORDERED: NO HOME MEDS (16:04)
[2019-11-05] MEDS ORDERED: magnesium hydroxide 30ml (MOM) UD suspension PO PRN (16:05)
[2019-11-05] MEDS ORDERED: ondansetron/PF 4mg/2ml inj IV PRN (16:05)
[2019-11-05] MEDS ORDERED: morphine 2 MG/ML inj. syringe IV PRN ×2 (16:05)
[2019-11-05] MEDS ORDERED: acetaminophen 325mg tablet PO PRN ×2 (16:05)
[2019-11-05] MEDS ORDERED: mag hydrox/Alum hydrox/simeth 30ml oral suspension PO PRN (16:05)
[2019-11-05 16:41] LABS: URINE AMPHETAMINE SCREEN NEGATIVE (Neg); URINE BARBITUATE SCREEN NEGATIVE (Neg); URINE BENZODIAZEPINES SCREEN NEGATIVE (Neg); URINE CANNABINOID SCREEN POSITIVE (Neg); URINE COCAINE SCREEN NEGATIVE (Neg); URINE METHADONE SCREEN NEGATIVE (Neg); URINE OPIATE SCREEN NEGATIVE (Neg); URINE PHENCYCLIDINE SCREEN NEGATIVE (Neg)
[2019-11-05] MEDS ORDERED: ALBU18HF2 INH (16:41)
[2019-11-05 16:47] LABS: ETHANOL 0.073 GM/DL (0.0-0.010); MAGNESIUM 1.3 MG/DL (1.5-2.4)
--- NOTE | 2019-11-05 16:57 | NUR ---
Pt. states he is feeling "out of it" and "disoriented"
--- NOTE | 2019-11-05 17:08 | NUR ---
Called to give report, Ortho floor unable to take report. Primary nurse and charge nurse unavailable, told they will call back when free.
--- NOTE | 2019-11-05 17:19 | NUR ---
Patient in room ED 9. I have received report from Lencho CASTRO and had the opportunity to ask questions and assume patient care.
[2019-11-05 17:57] VITALS: BP 128/52
--- NOTE | 2019-11-05 18:17 | NUR ---
Problems reprioritized. Patient report given, questions answered & plan of care reviewed with January CASTRO.
--- NOTE | 2019-11-05 18:31 | NUR ---
Patient in room ORTHO 4015. I have received report from Carlos CASTRO and had the opportunity to ask questions and assume patient care.
[2019-11-05 19:10] VITALS: BP 112/75
[2019-11-05] MEDS ORDERED: thiamine 100mg tablet PO ONE (19:30)
[2019-11-05] MEDS: chlordiazePOXIDE 25mg capsule PO SCH (19:57)
[2019-11-05] MEDS ORDERED: ipratropium/albuterol 3ml nebule NEB PRN (21:45)
[2019-11-05] MEDS ORDERED: potassium CL 10mEq/100ml bag 100 ML IV PRN (21:50)
[2019-11-05] MEDS ORDERED: potassium Cl 20 mEq SR tablet PO PRN ×2 (21:50)
[2019-11-05] MEDS: K and/or MAG REPLACEMENT MC SCH (21:50)
[2019-11-05] MEDS ORDERED: magnesium 4gm in 100ml NS 100 ML IV PRN (21:50)
[2019-11-05 22:00] VITALS: BP 125/75
[2019-11-05] MEDS: magnesium Cl slow-release 64mg tablet PO PRN (23:42)
[2019-11-05] MEDS: guaiFENesin/codeine phos 10ml UD oral syrup PO PRN (23:42)
[2019-11-05] MEDS: HYDROcodone/acetaminophen 5mg/325mg tablet PO PRN (23:42)
[2019-11-06] MEDS: chlordiazePOXIDE 25mg capsule PO SCH ×4 (02:34→20:07)
[2019-11-06 06:00] VITALS: BP 105/64
[2019-11-06 06:00] LABS: BASOPHILS # (AUTO) 0.1 X10'3 (0-0.2); BASOPHILS % (AUTO) 0.9 % (0-1); EOSINOPHILS # (AUTO) 0.1 X10'3 (0-0.9); EOSINOPHILS % (AUTO) 2.5 % (0-6); HEMATOCRIT 38.3 % (42.0-52.0); HEMOGLOBIN 13.2 g/dl (14.0-17.9); LYMPHOCYTES # (AUTO) 1.3 X10'3 (1.1-4.8); LYMPHOCYTES % (AUTO) 22.8 % (21-51); MEAN CORPUSCULAR HEMOGLOBIN 33.5 PG (27.0-31.0); MEAN CORPUSCULAR HGB CONC 34.5 g/dL (33.0-36.5); MONOCYTES # (AUTO) 0.5 X10'3 (0-0.9); MONOCYTES % (AUTO) 8.9 % (2-12); NEUTROPHILS # (AUTO) 3.6 X10'3 (1.8-7.7); NEUTROPHILS % (AUTO) 64.9 % (42-75); PLATELET COUNT 183 X10'3 (140-440); RED BLOOD COUNT 3.95 X10'6 (4.70-6.10); RED CELL DISTRIBUTION WIDTH 13.9 % (11.5-14.5); WHITE BLOOD COUNT 5.6 X10'3 (4.5-11.0)
[2019-11-06 06:24] LABS: ALBUMIN 3.2 G/DL (3.4-5.0); ANION GAP 8 (8-16); BLOOD UREA NITROGEN 6 MG/DL (7-18); BUN/CREATININE RATIO 7.7 (5.4-32.0); CHLORIDE 106 MMOL/L (99-107); CREATININE 0.78 MG/DL (0.60-1.10); GLUCOSE 85 MG/DL (70-104); MAGNESIUM 1.3 MG/DL (1.5-2.4); POTASSIUM 3.5 MMOL/L (3.5-5.1); SODIUM 142 MMOL/L (135-145); TOTAL CARBON DIOXIDE 28.2 MMOL/L (24-32); eGFR > 90 ML/MIN
--- NOTE | 2019-11-06 06:29 | NUR ---
Problems reprioritized. Patient report given, questions answered & plan of care reviewed with BRANDEE CASTRO.
--- NOTE | 2019-11-06 06:50 | NUR ---
Patient in room ORTHO 4015. I have received report from January CASTRO and had the opportunity to ask questions and assume patient care.
[2019-11-06] MEDS: K and/or MAG REPLACEMENT MC SCH ×2 (07:11→20:00)
[2019-11-06] MEDS: magnesium Cl slow-release 64mg tablet PO PRN (08:05)
[2019-11-06] MEDS: HYDROcodone/acetaminophen 5mg/325mg tablet PO PRN ×2 (08:05→23:37)
[2019-11-06 10:00] VITALS: BP 115/72
--- NOTE | 2019-11-06 14:55 | NUR ---
Carlos [id number] Re: Remi Cuellar Pt requesting nicotine patch, he is a pack a day smoker.
[2019-11-06 18:00] VITALS: BP 110/69
--- NOTE | 2019-11-06 18:00 | NUR ---
Patient in room ORTHO 4015. I have received report from cecilia fulton and had the opportunity to ask questions and assume patient care.
[2019-11-06 21:54] VITALS: BP 92/51
[2019-11-07] MEDS: chlordiazePOXIDE 25mg capsule PO SCH ×2 (02:37→09:28)
[2019-11-07 06:00] VITALS: BP 108/68
[2019-11-07 06:19] LABS: BASOPHILS % (AUTO) 0.8 % (0-1); EOSINOPHILS # (AUTO) 0.2 X10'3 (0-0.9); EOSINOPHILS % (AUTO) 4.6 % (0-6); HEMATOCRIT 37.4 % (42.0-52.0); LYMPHOCYTES # (AUTO) 1.3 X10'3 (1.1-4.8); LYMPHOCYTES % (AUTO) 24.4 % (21-51); MEAN CORPUSCULAR HEMOGLOBIN 33.6 PG (27.0-31.0); MEAN CORPUSCULAR HGB CONC 34.7 g/dL (33.0-36.5); MEAN CORPUSCULAR VOLUME 96.9 FL (78-98); MEAN PLATELET VOLUME 8.1 FL (7.4-10.4); MONOCYTES # (AUTO) 0.5 X10'3 (0-0.9); MONOCYTES % (AUTO) 9.1 % (2-12); NEUTROPHILS # (AUTO) 3.3 X10'3 (1.8-7.7); NEUTROPHILS % (AUTO) 61.1 % (42-75); PLATELET COUNT 162 X10'3 (140-440); RED BLOOD COUNT 3.86 X10'6 (4.70-6.10); RED CELL DISTRIBUTION WIDTH 13.5 % (11.5-14.5); WHITE BLOOD COUNT 5.4 X10'3 (4.5-11.0)
--- NOTE | 2019-11-07 06:30 | NUR ---
Patient in room ORTHO 4015. I have received report from MATTHEW Collazo and had the opportunity to ask questions and assume patient care.
[2019-11-07 07:03] LABS: ALBUMIN 3.3 G/DL (3.4-5.0); ANION GAP 10 (8-16); BLOOD UREA NITROGEN 11 MG/DL (7-18); BUN/CREATININE RATIO 12.5 (5.4-32.0); CALCIUM 8.6 MG/DL (8.5-10.1); CHLORIDE 105 MMOL/L (99-107); CREATININE 0.88 MG/DL (0.60-1.10); GLUCOSE 93 MG/DL (70-104); MAGNESIUM 1.6 MG/DL (1.5-2.4); POTASSIUM 3.5 MMOL/L (3.5-5.1); SODIUM 143 MMOL/L (135-145); TOTAL CARBON DIOXIDE 27.6 MMOL/L (24-32); eGFR > 90 ML/MIN
[2019-11-07] MEDS ORDERED: levoFLOXACIN 750MG TABLET PO SCH (08:00)
[2019-11-07] MEDS: K and/or MAG REPLACEMENT MC SCH (08:00)
[2019-11-07] MEDS: guaiFENesin/codeine phos 10ml UD oral syrup PO PRN (09:34)
[2019-11-07 10:00] VITALS: BP 93/66
[2019-11-07] MEDS ORDERED: FOLI0.4T2 PO (11:30)
[2019-11-07] MEDS ORDERED: THIA100T66 PO (11:30)
[2019-11-07] MEDS ORDERED: LEVO750T21 PO (11:30)
[2019-11-07] MEDS ORDERED: NICO-631 TD (11:30)
[2019-11-07] MEDS ORDERED: nicotine 14mg patch - 24hr TD ONE (11:55)
--- NOTE | 2019-11-07 13:50 | NUR ---
Received discharge orders from Dr. Villa. Discharge medications called to [facility] on [facility] per pts request. IV LFA dc'd with cannula intact. No redness/swelling at insertion site. Discharged via ambulation to front lobby and friend picked him up in a private vehicle
== END 2019-11-07 13:50 | disposition home or self-care (01) | DRG 145 ==
LOC: ER 11:31 → ED HOLD 16:05 → ORTHO 4S 17:45 → OBSVTOIN 11-06 13:41
PROVIDERS: ADMIT Internal Medicine; ATTEND Internal Medicine
DX: J20.9 Acute bronchitis, unspecified (principal); E83.42 Hypomagnesemia; K76.0 Fatty (change of) liver, not elsewhere classified; R74.0 Nonspecific elevation of levels of transaminase and lactic acid dehydrogenase [LDH]; F12.90 Cannabis use, unspecified, uncomplicated; F17.210 Nicotine dependence, cigarettes, uncomplicated; J44.9 Chronic obstructive pulmonary disease, unspecified; Y90.3 Blood alcohol level of 60-79 mg/100 ml; F10.10 Alcohol abuse, uncomplicated
CPT/HCPCS: 36415; 36600; 71045; 71275; 80048; 80053; 80305; 80320; 81001; 82803; 82948; 83605; 83735; 83880; 84100; 84145; 85018; 85025; 85379; 85610; 85730; 87040; 87081; 87502; 87503; 93005; 94640; 94667; 94760; G0378; Q9967

== ENCOUNTER 2019-11-08 03:15 | Emergency (ER) | payer MEDICAID ==
[~2019-11-08] VITALS: Ht 188 cm; Wt 75.0 kg
[~2019-11-08 03:15] MED LIST changes: +ALBU18HF2 INH; -AZIT250T PO; -CHLO25CA10 PO; -DIPH25CA83 PO; +FOLI0.4T2 PO; -GABA300C PO; +LEVO750T21 PO; -MECL-159 PO; +NICO-631 TD; -ONDA4TAB6 PO; -ONDA8TAB9 PO; -PHEN30SP9 PO; -PROM25TA14 PO; +THIA100T66 PO
[2019-11-08 03:26] VITALS: BP 117/70
== END 2019-11-08 05:07 | disposition home or self-care (01) ==
LOC: ER 03:16
DX: L02.416 Cutaneous abscess of left lower limb (principal); F10.99 Alcohol use, unspecified with unspecified alcohol-induced disorder; F12.90 Cannabis use, unspecified, uncomplicated; Z86.69 Personal history of other diseases of the nervous system and sense organs; Z79.899 Other long term (current) drug therapy; Y90.9 Presence of alcohol in blood, level not specified
CPT/HCPCS: 99281

== ENCOUNTER 2019-11-25 14:29 | Emergency (ER) | payer MEDICAID ==
[~2019-11-25] VITALS: Ht 188 cm; Wt 70.0 kg
[~2019-11-25 14:29] MED LIST changes: -LEVO750T21 PO
[2019-11-25 14:50] VITALS: BP 115/71
[2019-11-25] MEDS ORDERED: PERM60CR19 TOP (15:28)
[2019-11-25] MEDS ORDERED: PRED20TA PO (15:29)
[2019-11-25] MEDS ORDERED: ACET-1015 PO (15:31)
[2019-11-25] MEDS ORDERED: CETI10TA18 PO (15:59)
[2019-11-30] MEDS ORDERED: AMOX500C2 PO (21:42)
[2019-11-30] MEDS ORDERED: TAM75C PO (21:42)
== END 2019-11-25 16:16 | disposition home or self-care (01) ==
LOC: ER 14:30
DX: J06.9 Acute upper respiratory infection, unspecified (principal); J44.9 Chronic obstructive pulmonary disease, unspecified; R21 Rash and other nonspecific skin eruption; F12.90 Cannabis use, unspecified, uncomplicated; Z59.0 Homelessness; Z79.899 Other long term (current) drug therapy; Z87.891 Personal history of nicotine dependence
CPT/HCPCS: 99283

== ENCOUNTER 2020-04-25 12:42 | Emergency (ER) | payer MEDICAID ==
[~2020-04-25] VITALS: Ht 175.3 cm; Wt 90.0 kg
[~2020-04-25 12:42] MED LIST changes: +CETI10TA18 PO; -FOLI0.4T2 PO; -NICO-631 TD
[2020-04-25] MEDS ORDERED: LORazepam 2 mg/ml vial IV ONE (14:35)
[2020-04-25] MEDS ORDERED: ondansetron/PF 4mg/2ml inj IV ONE (14:35)
[2020-04-25] MEDS ORDERED: normal saline 1000ML IV soln IVB ONE (14:35)
[2020-04-25 14:39] LABS: BASOPHILS # (AUTO) 0.1 X10'3 (0-0.2); BASOPHILS % (AUTO) 0.8 % (0-1); EOSINOPHILS # (AUTO) 0.3 X10'3 (0-0.9); HEMOGLOBIN 16.7 g/dl (14.0-17.9); LYMPHOCYTES % (AUTO) 14.1 % (21-51); MEAN CORPUSCULAR HGB CONC 34.9 g/dL (33.0-36.5); MEAN CORPUSCULAR VOLUME 91.8 FL (78-98); MEAN PLATELET VOLUME 7.5 FL (7.4-10.4); MONOCYTES # (AUTO) 0.6 X10'3 (0-0.9); MONOCYTES % (AUTO) 8.1 % (2-12); PLATELET COUNT 150 X10'3 (140-440); RED BLOOD COUNT 5.23 X10'6 (4.70-6.10); WHITE BLOOD COUNT 6.9 X10'3 (4.5-11.0)
[2020-04-25 15:00] LABS: ALANINE AMINOTRANSFERASE 73 U/L (12-78); ALBUMIN 4.5 G/DL (3.4-5.0); ALBUMIN/GLOBULIN RATIO 1.1 (1.1-1.5); ALKALINE PHOSPHATASE 95 IU/L (46-116); ANION GAP 16 (8-16); ASPARTATE AMINO TRANSFERASE 88 U/L (10-37); BILIRUBIN,TOTAL 1.4 MG/DL (0.1-1.0); BLOOD UREA NITROGEN 4 MG/DL (7-18); BUN/CREATININE RATIO 4.6 (5.4-32.0); CALCIUM 9.6 MG/DL (8.5-10.1); CHLORIDE 97 MMOL/L (99-107); CREATININE 0.87 MG/DL (0.60-1.10); ETHANOL 0.127 GM/DL (0.0-0.010); GLUCOSE 88 MG/DL (70-104); LIPASE 307 U/L (73-393); POTASSIUM 3.8 MMOL/L (3.5-5.1); SODIUM 138 MMOL/L (135-145); TOTAL PROTEIN 8.7 G/DL (6.4-8.2); eGFR > 90 ML/MIN
[2020-04-25 18:37] VITALS: BP 114/73
[2020-04-25] MEDS ORDERED: HYDR-3686 PO (18:44)
[2020-04-25] MEDS ORDERED: CLON-529 PO (18:44)
[2020-04-25] MEDS ORDERED: ONDA4TAB6 PO (18:45)
== END 2020-04-25 18:47 | disposition home or self-care (01) ==
LOC: ER 12:43
DX: F10.929 Alcohol use, unspecified with intoxication, unspecified (principal); R06.02 Shortness of breath; R07.9 Chest pain, unspecified; R05 Cough; R11.10 Vomiting, unspecified; J43.9 Emphysema, unspecified; F17.200 Nicotine dependence, unspecified, uncomplicated; F12.90 Cannabis use, unspecified, uncomplicated; Z86.69 Personal history of other diseases of the nervous system and sense organs; Z87.01 Personal history of pneumonia (recurrent); Z98.890 Other specified postprocedural states; Z72.89 Other problems related to lifestyle; Z59.0 Homelessness; Z79.899 Other long term (current) drug therapy
CPT/HCPCS: 36415; 71045; 80053; 80320; 83690; 84484; 85025; 93005; 96361; 96374; 96375; 99285; J2060; J2405; J7030

== ENCOUNTER 2020-05-06 12:09 | Inpatient (IN) | payer MEDICAID ==
[~2020-05-06] VITALS: Ht 188 cm; Wt 65.3 kg
[~2020-05-06 12:09] MED LIST changes: +CLON-529 PO; +HYDR-3686 PO; +ONDA4TAB6 PO
[2020-05-06] MEDS ORDERED: pantoprazole 40 MG vial IV ONE (12:30)
[2020-05-06] MEDS ORDERED: ketorolac trometh. 30mg/ml inj. IV ONE (12:30)
[2020-05-06] MEDS ORDERED: normal saline 1000ML IV soln IVB ONE (12:30)
[2020-05-06] MEDS ORDERED: ondansetron/PF 4mg/2ml inj IV ONE (12:30)
[2020-05-06] MEDS ORDERED: famotidine/PF 10 mg/ml inj IV ONE (12:30)
[2020-05-06] MEDS ORDERED: proCHLORperazine 10 MG/2 ml inj IV ONE (12:30)
[2020-05-06 12:50] LABS: BASOPHILS % (AUTO) 0.3 % (0-1); EOSINOPHILS % (AUTO) 0.5 % (0-6); HEMATOCRIT 45.7 % (42.0-52.0); HEMOGLOBIN 15.8 g/dl (14.0-17.9); LYMPHOCYTES # (AUTO) 0.6 X10'3 (1.1-4.8); LYMPHOCYTES % (AUTO) 10.8 % (21-51); MEAN CORPUSCULAR HEMOGLOBIN 32.1 PG (27.0-31.0); MEAN CORPUSCULAR HGB CONC 34.7 g/dL (33.0-36.5); MEAN CORPUSCULAR VOLUME 92.5 FL (78-98); MEAN PLATELET VOLUME 7.8 FL (7.4-10.4); MONOCYTES # (AUTO) 0.8 X10'3 (0-0.9); MONOCYTES % (AUTO) 13.8 % (2-12); NEUTROPHILS # (AUTO) 4.3 X10'3 (1.8-7.7); NEUTROPHILS % (AUTO) 74.6 % (42-75); PLATELET COUNT 171 X10'3 (140-440); RED BLOOD COUNT 4.94 X10'6 (4.70-6.10); RED CELL DISTRIBUTION WIDTH 14.4 % (11.5-14.5); WHITE BLOOD COUNT 5.8 X10'3 (4.5-11.0)
[2020-05-06 13:01] LABS: ALANINE AMINOTRANSFERASE 59 U/L (12-78); ALBUMIN 4.7 G/DL (3.4-5.0); ALBUMIN/GLOBULIN RATIO 1.1 (1.1-1.5); ALKALINE PHOSPHATASE 86 IU/L (46-116); ANION GAP 13 (8-16); ASPARTATE AMINO TRANSFERASE 53 U/L (10-37); BILIRUBIN,TOTAL 2.2 MG/DL (0.1-1.0); BLOOD UREA NITROGEN 38 MG/DL (7-18); BUN/CREATININE RATIO 8.9 (5.4-32.0); CALCIUM 9.1 MG/DL (8.5-10.1); CHLORIDE 88 MMOL/L (99-107); CREATININE 4.27 MG/DL (0.60-1.10); GLUCOSE 187 MG/DL (70-104); SODIUM 133 MMOL/L (135-145); TOTAL CARBON DIOXIDE 32.1 MMOL/L (24-32); TOTAL PROTEIN 8.8 G/DL (6.4-8.2); eGFR 15 ML/MIN
[2020-05-06 13:02] LABS: ETHANOL < 0.010 GM/DL (0.0-0.010); LIPASE 496 U/L (73-393)
[2020-05-06 13:07] LABS: POTASSIUM 2.7 MMOL/L (3.5-5.1)
[2020-05-06] MEDS ORDERED: magnesium 2GM in 50ml NS 50 ML IV ONE (13:15)
[2020-05-06] MEDS ORDERED: POTASSIUM BICARB 20meq eff tab 20 MEQ TABLET.EFF PO ONE (13:15)
[2020-05-06] MEDS ORDERED: potassium Cl 10 mEq/100mL bag IV ONE (13:15)
[2020-05-06] MEDS: normal saline 1000ml 1,000 ML IV SCH ×2 (13:58→21:39)
[2020-05-06] MEDS ORDERED: LORazepam 2 mg/ml vial IV PRN (14:00)
[2020-05-06] MEDS ORDERED: magnesium 4gm in 100ml NS 100 ML IV PRN (14:00)
[2020-05-06] MEDS ORDERED: magnesium 2GM in 50ml NS 50 ML IV PRN (14:00)
[2020-05-06] MEDS ORDERED: magnesium Cl slow-release 64mg tablet PO PRN (14:00)
[2020-05-06] MEDS ORDERED: ondansetron/PF 4mg/2ml inj IV PRN (14:00)
[2020-05-06] MEDS ORDERED: potassium CL 10mEq/100ml bag 100 ML IV PRN ×2 (14:00)
[2020-05-06] MEDS ORDERED: docusate sod 100mg capsule PO PRN (14:00)
[2020-05-06] MEDS ORDERED: acetaminophen 325mg tablet PO PRN ×2 (14:00)
[2020-05-06] MEDS ORDERED: HYDROcodone/acetaminophen 5mg/325mg tablet PO PRN (14:00)
[2020-05-06] MEDS ORDERED: LORazepam 1 MG tablet PO PRN (14:00)
[2020-05-06] MEDS ORDERED: potassium Cl 20 mEq SR tablet PO PRN (14:00)
[2020-05-06] MEDS: pantoprazole 40 MG vial IV SCH (14:25)
[2020-05-06] MEDS ORDERED: albuterol 2.5 MG/3 ML nebule NEB PRN (14:25)
[2020-05-06 15:06] LABS: CLARITY,URINE SLIGHTLY CLOUDY (Clear); COLOR,URINE YELLOW (Yellow); GLUCOSE, URINE NEGATIVE (Neg); KETONES,URINE TRACE mg/dl (Neg); LEUKOCYTE ESTERASE ,URINE NEGATIVE (Neg); NITRITES, URINE NEGATIVE (Neg); OCCULT BLOOD,URINE SMALL (Neg); PH,URINE 5.5 (4.8-8.0); PROTEIN,URINE 100 mg/dl (Neg)
[2020-05-06 15:10] VITALS: BP 117/85
[2020-05-06 15:10] LABS: UA COLLECTION TYPE URINAL
--- NOTE | 2020-05-06 15:10 | NUR ---
Pt transferred from ER to 4009b via w/c to bed. Pt awake and alert. VSS. Pt reported lower abd pain. BS Hypoactive. Pt reported black BM this early AM. Oriented pt to bed, surroundings and instructed on use of call light for assistance OOB.
[2020-05-06 15:12] LABS: AMORPHOUS URATES 1+; BACTERIA,URINE NONE SEEN /HPF (Neg); MUCUS STRANDS FEW /LPF (Neg); RBC,URINE 0-2 /HPF (0-2); SQUAMOUS EPITHELIAL CELL,UR FEW /LPF (FEW); WBC,URINE 0-4 /HPF (0-4)
[2020-05-06 15:45] LABS: URINE AMPHETAMINE SCREEN NEGATIVE (Neg); URINE BARBITUATE SCREEN NEGATIVE (Neg); URINE BENZODIAZEPINES SCREEN NEGATIVE (Neg); URINE CANNABINOID SCREEN POSITIVE (Neg); URINE COCAINE SCREEN NEGATIVE (Neg); URINE METHADONE SCREEN NEGATIVE (Neg); URINE OPIATE SCREEN NEGATIVE (Neg); URINE PHENCYCLIDINE SCREEN NEGATIVE (Neg)
[2020-05-06] MEDS: morphine 2 MG/ML inj. syringe IV PRN ×2 (15:54→21:39)
--- NOTE | 2020-05-06 16:30 | NUR ---
Report given to Brenda Paul RN. ER registration called to lock pt's wallet in safe.
[2020-05-06 18:00] VITALS: BP 113/72
[2020-05-06] MEDS: potassium Cl 20 mEq SR tablet PO PRN (18:05)
--- NOTE | 2020-05-06 18:34 | NUR ---
Patient in room ORTHO 4009. I have received report from Brenda CASTRO and had the opportunity to ask questions and assume patient care.
[2020-05-06] MEDS: nicotine 14mg patch - 24hr TD SCH (18:59)
[2020-05-06] MEDS: K and/or MAG REPLACEMENT MC SCH (20:00)
[2020-05-06] MEDS: heparin, porcine 5000 units/ml vial SQ SCH (20:02)
[2020-05-06 22:00] VITALS: BP 112/77
[2020-05-07] MEDS: potassium Cl 20 mEq SR tablet PO PRN (00:35)
[2020-05-07] MEDS: normal saline 1000ml 1,000 ML IV SCH ×4 (04:57→21:18)
[2020-05-07 06:00] VITALS: BP 124/71
--- NOTE | 2020-05-07 06:19 | NUR ---
Problems reprioritized. Patient report given, questions answered & plan of care reviewed with Arlen RN and Kyung RN.
--- NOTE | 2020-05-07 06:26 | NUR ---
Patient in room ORTHO 4009. I have received report from Ashly CASTRO and had the opportunity to ask questions and assume patient care.
[2020-05-07] MEDS: K and/or MAG REPLACEMENT MC SCH ×2 (08:00→20:00)
[2020-05-07] MEDS ORDERED: nicotine 14mg patch - 24hr TD SCH (08:00)
[2020-05-07] MEDS: pantoprazole 40 MG vial IV SCH (08:12)
[2020-05-07] MEDS: nicotine 14mg patch - 24hr TD SCH (08:13)
[2020-05-07] MEDS: heparin, porcine 5000 units/ml vial SQ SCH ×2 (08:15→19:21)
--- NOTE | 2020-05-07 08:16 | NUR ---
WAITING FOR LAB TO DRAW PT CMP AND CBC/DIFF, PT IS WALKING UP AD MARYANNE TO BATHROOM, AND IS STEADY ON FEET AT THIS TIME, CONTINUE TO MONITOR
[2020-05-07 08:52] LABS: ALANINE AMINOTRANSFERASE 70 U/L (12-78); ALBUMIN 3.6 G/DL (3.4-5.0); ALBUMIN/GLOBULIN RATIO 1.2 (1.1-1.5); ALKALINE PHOSPHATASE 55 IU/L (46-116); ANION GAP 6 (8-16); ASPARTATE AMINO TRANSFERASE 109 U/L (10-37); BASOPHILS % (AUTO) 0.9 % (0-1); BILIRUBIN,TOTAL 2.6 MG/DL (0.1-1.0); BLOOD UREA NITROGEN 34 MG/DL (7-18); BUN/CREATININE RATIO 14.8 (5.4-32.0); CALCIUM 7.7 MG/DL (8.5-10.1); CHLORIDE 99 MMOL/L (99-107); CREATININE 2.29 MG/DL (0.60-1.10); EOSINOPHILS # (AUTO) 0.1 X10'3 (0-0.9); EOSINOPHILS % (AUTO) 1.6 % (0-6); GLUCOSE 121 MG/DL (70-104); HEMATOCRIT 38.4 % (42.0-52.0); HEMOGLOBIN 12.9 g/dl (14.0-17.9); LYMPHOCYTES # (AUTO) 1.2 X10'3 (1.1-4.8); MAGNESIUM 1.8 MG/DL (1.5-2.4); MEAN CORPUSCULAR HEMOGLOBIN 31.8 PG (27.0-31.0); MEAN CORPUSCULAR HGB CONC 33.6 g/dL (33.0-36.5); MEAN CORPUSCULAR VOLUME 94.7 FL (78-98); MEAN PLATELET VOLUME 7.9 FL (7.4-10.4); MONOCYTES # (AUTO) 0.5 X10'3 (0-0.9); MONOCYTES % (AUTO) 12.2 % (2-12); NEUTROPHILS # (AUTO) 2.5 X10'3 (1.8-7.7); NEUTROPHILS % (AUTO) 58.3 % (42-75); PLATELET COUNT 118 X10'3 (140-440); POTASSIUM 3.5 MMOL/L (3.5-5.1); RED BLOOD COUNT 4.06 X10'6 (4.70-6.10); RED CELL DISTRIBUTION WIDTH 14.3 % (11.5-14.5); SODIUM 137 MMOL/L (135-145); TOTAL CARBON DIOXIDE 31.6 MMOL/L (24-32); TOTAL PROTEIN 6.6 G/DL (6.4-8.2); WHITE BLOOD COUNT 4.3 X10'3 (4.5-11.0); eGFR 32 ML/MIN
[2020-05-07 10:00] VITALS: BP 110/81
[2020-05-07 10:28] LABS: LIPASE 516 U/L (73-393)
--- NOTE | 2020-05-07 15:41 | NUR ---
Malnutrition consult: Pt admit w/ chronic etoh abuse and intractable N/V. Pt has no significant weakness, edema, and well-appearing per MD note. Pt has no visible signs of muscle/fat wasting during RD visit. Advanced to full liquids from clears. RD d/w RN regarding etoh protocol if MD agreeable given hx. At this time pt does not meet minimum malnutrition criteria. Will continue to monitor. Addendum: 05/07/20 at [address] Amended: Links added.
[2020-05-07 15:52] LABS: BASOPHILS % (AUTO) 0.9 % (0-1); EOSINOPHILS # (AUTO) 0.1 X10'3 (0-0.9); EOSINOPHILS % (AUTO) 1.4 % (0-6); HEMATOCRIT 37.6 % (42.0-52.0); HEMOGLOBIN 12.9 g/dl (14.0-17.9); LYMPHOCYTES # (AUTO) 0.9 X10'3 (1.1-4.8); MEAN CORPUSCULAR HEMOGLOBIN 32.6 PG (27.0-31.0); MEAN CORPUSCULAR HGB CONC 34.3 g/dL (33.0-36.5); MEAN CORPUSCULAR VOLUME 95.2 FL (78-98); MEAN PLATELET VOLUME 7.8 FL (7.4-10.4); MONOCYTES # (AUTO) 0.6 X10'3 (0-0.9); MONOCYTES % (AUTO) 13.2 % (2-12); NEUTROPHILS # (AUTO) 2.9 X10'3 (1.8-7.7); NEUTROPHILS % (AUTO) 64.5 % (42-75); PLATELET COUNT 125 X10'3 (140-440); RED BLOOD COUNT 3.95 X10'6 (4.70-6.10); RED CELL DISTRIBUTION WIDTH 14.1 % (11.5-14.5); WHITE BLOOD COUNT 4.5 X10'3 (4.5-11.0)
[2020-05-07 18:00] VITALS: BP 115/75
--- NOTE | 2020-05-07 18:05 | NUR ---
Patient in room ORTHO 4009. I have received report from MATTHEW Mckinley and had the opportunity to ask questions and assume patient care.
--- NOTE | 2020-05-07 18:17 | NUR ---
Problems reprioritized. Patient report given, questions answered & plan of care reviewed with Johanna CASTRO.
[2020-05-07 22:00] VITALS: BP 116/80
[2020-05-08 05:57] LABS: BASOPHILS % (AUTO) 1.3 % (0-1); EOSINOPHILS # (AUTO) 0.1 X10'3 (0-0.9); EOSINOPHILS % (AUTO) 2.6 % (0-6); HEMATOCRIT 36.4 % (42.0-52.0); HEMOGLOBIN 12.3 g/dl (14.0-17.9); LYMPHOCYTES # (AUTO) 1.2 X10'3 (1.1-4.8); LYMPHOCYTES % (AUTO) 35.5 % (21-51); MEAN CORPUSCULAR HEMOGLOBIN 32.2 PG (27.0-31.0); MEAN CORPUSCULAR HGB CONC 33.8 g/dL (33.0-36.5); MEAN CORPUSCULAR VOLUME 95.2 FL (78-98); MEAN PLATELET VOLUME 7.9 FL (7.4-10.4); MONOCYTES # (AUTO) 0.5 X10'3 (0-0.9); MONOCYTES % (AUTO) 13.8 % (2-12); NEUTROPHILS # (AUTO) 1.6 X10'3 (1.8-7.7); NEUTROPHILS % (AUTO) 46.8 % (42-75); PLATELET COUNT 112 X10'3 (140-440); RED BLOOD COUNT 3.83 X10'6 (4.70-6.10); RED CELL DISTRIBUTION WIDTH 14.1 % (11.5-14.5); WHITE BLOOD COUNT 3.4 X10'3 (4.5-11.0)
[2020-05-08] MEDS: normal saline 1000ml 1,000 ML IV SCH ×2 (05:58→09:09)
[2020-05-08 06:00] VITALS: BP 140/71
--- NOTE | 2020-05-08 06:17 | NUR ---
Problems reprioritized. Patient report given, questions answered & plan of care reviewed with MATTHEW Mckinley.
[2020-05-08 06:20] LABS: ALANINE AMINOTRANSFERASE 77 U/L (12-78); ALBUMIN 3.4 G/DL (3.4-5.0); ALBUMIN/GLOBULIN RATIO 1.1 (1.1-1.5); ALKALINE PHOSPHATASE 50 IU/L (46-116); ANION GAP 8 (8-16); ASPARTATE AMINO TRANSFERASE 86 U/L (10-37); BILIRUBIN,TOTAL 1.5 MG/DL (0.1-1.0); BLOOD UREA NITROGEN 19 MG/DL (7-18); BUN/CREATININE RATIO 13.3 (5.4-32.0); CALCIUM 8.3 MG/DL (8.5-10.1); CHLORIDE 104 MMOL/L (99-107); CREATININE 1.43 MG/DL (0.60-1.10); GLUCOSE 95 MG/DL (70-104); MAGNESIUM 1.5 MG/DL (1.5-2.4); POTASSIUM 3.6 MMOL/L (3.5-5.1); SODIUM 139 MMOL/L (135-145); TOTAL CARBON DIOXIDE 27.5 MMOL/L (24-32); TOTAL PROTEIN 6.4 G/DL (6.4-8.2); eGFR 54 ML/MIN
--- NOTE | 2020-05-08 06:22 | NUR ---
Patient in room ORTHO 4009. I have received report from Johanna CASTRO and had the opportunity to ask questions and assume patient care.
[2020-05-08] MEDS: K and/or MAG REPLACEMENT MC SCH (06:37)
[2020-05-08] MEDS: nicotine 14mg patch - 24hr TD SCH (08:57)
[2020-05-08] MEDS: pantoprazole 40 MG vial IV SCH (08:58)
[2020-05-08] MEDS: heparin, porcine 5000 units/ml vial SQ SCH (09:02)
[2020-05-08 10:00] VITALS: BP 138/86
[2020-05-08] MEDS ORDERED: PANT-47 PO (13:30)
--- NOTE | 2020-05-08 14:25 | NUR ---
PT D/C WITH INSTRUCTIONS, UNDERSTANDING OF INSTRUCTIONS AND W/ALL BELONGINGS WALKING OUT TO PRIVATE VEHICLE TO GO HOME AND F/U W/PCP
== END 2020-05-08 14:30 | disposition home or self-care (01) | DRG 422 ==
LOC: ER 12:09 → ED HOLD 13:58 → ORTHO 4S 15:03
PROVIDERS: ADMIT Internal Medicine; ATTEND Internal Medicine
DX: E86.0 Dehydration (principal); N17.0 Acute kidney failure with tubular necrosis; F10.20 Alcohol dependence, uncomplicated; E87.6 Hypokalemia; R74.0 Nonspecific elevation of levels of transaminase and lactic acid dehydrogenase [LDH]; R74.8 Abnormal levels of other serum enzymes; F12.90 Cannabis use, unspecified, uncomplicated; F17.210 Nicotine dependence, cigarettes, uncomplicated; J43.9 Emphysema, unspecified; J45.909 Unspecified asthma, uncomplicated; K29.00 Acute gastritis without bleeding; Z59.0 Homelessness; Z71.41 Alcohol abuse counseling and surveillance of alcoholic; Z71.6 Tobacco abuse counseling
CPT/HCPCS: 36415; 76775; 80053; 80305; 80320; 81001; 83690; 83735; 85025; 85610; 87081; 96361; 96374; 96375; 97110; 97116; 97161; 99285; C9113; G0378; J0780; J1644; J1885; J2270; J2405; J3475; J3480; J3490; J7030

== ENCOUNTER 2020-05-11 12:38 | Emergency (ER) | payer MEDICAID ==
[~2020-05-11] VITALS: Ht 188 cm; Wt 63.0 kg
[~2020-05-11 12:38] MED LIST changes: -CETI10TA18 PO; -CLON-529 PO; -HYDR-3686 PO; -ONDA4TAB6 PO; +PANT-47 PO; -THIA100T66 PO
[2020-05-11 13:24] VITALS: BP 135/100
== END 2020-05-11 13:26 | disposition home or self-care (01) ==
LOC: ER 12:39
DX: S30.1XXA Contusion of abdominal wall, initial encounter (principal); F12.90 Cannabis use, unspecified, uncomplicated; Z86.69 Personal history of other diseases of the nervous system and sense organs; Z87.01 Personal history of pneumonia (recurrent); Z98.890 Other specified postprocedural states; Z72.89 Other problems related to lifestyle; Z59.0 Homelessness; Z79.899 Other long term (current) drug therapy; X58.XXXA Exposure to other specified factors, initial encounter; Y93.89 Activity, other specified; Y99.8 Other external cause status; Y92.89 Other specified places as the place of occurrence of the external cause
CPT/HCPCS: 99281

== ENCOUNTER 2020-07-01 16:42 | Emergency (ER) | payer MEDICAID ==
[~2020-07-01] VITALS: Ht 188 cm; Wt 72.7 kg
[2020-07-01 17:24] LABS: BASOPHILS # (AUTO) 0.1 X10'3 (0-0.2); EOSINOPHILS # (AUTO) 0.1 X10'3 (0-0.9); LYMPHOCYTES # (AUTO) 1.6 X10'3 (1.1-4.8); MEAN CORPUSCULAR HEMOGLOBIN 33.1 PG (27.0-31.0); MONOCYTES # (AUTO) 0.7 X10'3 (0-0.9); WHITE BLOOD COUNT 5.5 X10'3 (4.5-11.0)
[2020-07-01 17:26] LABS: BASOPHILS % (AUTO) 1.5 % (0-1); EOSINOPHILS % (AUTO) 2.2 % (0-6); HEMATOCRIT 41.9 % (42.0-52.0); HEMOGLOBIN 14.6 g/dl (14.0-17.9); LYMPHOCYTES % (AUTO) 28.9 % (21-51); MEAN CORPUSCULAR HGB CONC 34.8 g/dL (33.0-36.5); MEAN CORPUSCULAR VOLUME 95.3 FL (78-98); MEAN PLATELET VOLUME 7.9 FL (7.4-10.4); MONOCYTES % (AUTO) 12.8 % (2-12); NEUTROPHILS % (AUTO) 54.6 % (42-75); PLATELET COUNT 135 X10'3 (140-440); RED CELL DISTRIBUTION WIDTH 13.7 % (11.5-14.5)
[2020-07-01 17:50] LABS: ALANINE AMINOTRANSFERASE 315 U/L (12-78); ALBUMIN 4.1 G/DL (3.4-5.0); ALBUMIN/GLOBULIN RATIO 1.1 (1.1-1.5); ALKALINE PHOSPHATASE 78 IU/L (46-116); ANION GAP 10 (8-16); ASPARTATE AMINO TRANSFERASE 287 U/L (10-37); BILIRUBIN,TOTAL 0.7 MG/DL (0.1-1.0); BLOOD UREA NITROGEN 3 MG/DL (7-18); BUN/CREATININE RATIO 4.1 (5.4-32.0); CHLORIDE 89 MMOL/L (99-107); CREATININE 0.74 MG/DL (0.60-1.10); GLUCOSE 105 MG/DL (70-104); POTASSIUM 3.5 MMOL/L (3.5-5.1); SODIUM 126 MMOL/L (135-145); TOTAL CARBON DIOXIDE 27.1 MMOL/L (24-32); TOTAL PROTEIN 7.7 G/DL (6.4-8.2); eGFR > 90 ML/MIN
[2020-07-01] MEDS ORDERED: ondansetron/PF 4mg/2ml inj IV ONE (18:00)
[2020-07-01] MEDS ORDERED: normal saline 1000ml 1,000 ML IV ONE (18:00)
[2020-07-01] MEDS ORDERED: ketorolac trometh. 30mg/ml inj. IV ONE (18:00)
[2020-07-01] MEDS ORDERED: iohexol 350MG/ML 100ml bottle IV ONE (18:02)
[2020-07-01 18:26] LABS: D-DIMER < 0.19 MG/L FEU (0-0.50)
[2020-07-01 18:32] LABS: ETHANOL 0.324 GM/DL (0.0-0.010)
[2020-07-01] MEDS ORDERED: NO HOME MEDS (18:33)
[2020-07-01 18:49] LABS: CLARITY,URINE CLEAR (Clear); COLOR,URINE YELLOW (Yellow); GLUCOSE, URINE NEGATIVE (Neg); KETONES,URINE NEGATIVE (Neg); LEUKOCYTE ESTERASE ,URINE NEGATIVE (Neg); NITRITES, URINE NEGATIVE (Neg); OCCULT BLOOD,URINE NEGATIVE (Neg); PROTEIN,URINE NEGATIVE (Neg); UROBILINOGEN,URINE 0.2 E.U/dL (0.2-1.0)
[2020-07-01 19:03] LABS: URINE AMPHETAMINE SCREEN NEGATIVE (Neg); URINE BARBITUATE SCREEN NEGATIVE (Neg); URINE BENZODIAZEPINES SCREEN NEGATIVE (Neg); URINE CANNABINOID SCREEN POSITIVE (Neg); URINE COCAINE SCREEN NEGATIVE (Neg); URINE METHADONE SCREEN NEGATIVE (Neg); URINE OPIATE SCREEN NEGATIVE (Neg); URINE PHENCYCLIDINE SCREEN NEGATIVE (Neg)
[2020-07-01 19:12] LABS: UA COLLECTION TYPE CLN CATCH MIDSTREAM
[2020-07-01] MEDS ORDERED: AZIT-63 PO (19:37)
[2020-07-01] MEDS ORDERED: azithromycin 250mg tablet PO ONE (19:40)
[2020-07-01 19:51] VITALS: BP 114/77
== END 2020-07-01 19:52 | disposition home or self-care (01) ==
LOC: ER 16:43
DX: E87.1 Hypo-osmolality and hyponatremia (principal); F10.129 Alcohol abuse with intoxication, unspecified; R55 Syncope and collapse; R51 Headache; R06.02 Shortness of breath; Y90.9 Presence of alcohol in blood, level not specified
CPT/HCPCS: 36415; 70450; 71045; 71275; 72125; 80053; 80305; 80320; 81003; 82948; 83880; 84484; 85025; 85379; 93005; 96361; 96374; 96375; 99285; J1885; J2405; J7030; Q9967

== ENCOUNTER 2020-09-30 18:54 | Emergency (ER) | payer MEDICAID ==
[~2020-09-30] VITALS: Ht 182.9 cm; Wt 80.0 kg
[~2020-09-30 18:54] MED LIST changes: -ALBU18HF2 INH; +NO HOME MEDS; -PANT-47 PO
[2020-09-30] MEDS ORDERED: ONDA8TAB65 (19:13)
[2020-09-30] MEDS ORDERED: acetaminophen 325mg tablet PO ONE (20:35)
--- NOTE | 2020-09-30 21:23 | NUR ---
jodi called for transport home to [address] Eris linares requested sandwich to go agree to ut home.
[2020-09-30 22:13] VITALS: BP 114/80
== END 2020-09-30 21:38 | disposition home or self-care (01) ==
LOC: ER 18:54
DX: S00.03XA Contusion of scalp, initial encounter (principal); F10.129 Alcohol abuse with intoxication, unspecified; R51.9 Headache, unspecified; J43.9 Emphysema, unspecified; F12.90 Cannabis use, unspecified, uncomplicated; Z86.69 Personal history of other diseases of the nervous system and sense organs; Z87.01 Personal history of pneumonia (recurrent); Z72.89 Other problems related to lifestyle; Z59.0 Homelessness; X58.XXXA Exposure to other specified factors, initial encounter; Y93.89 Activity, other specified; Y92.89 Other specified places as the place of occurrence of the external cause; Y99.8 Other external cause status
CPT/HCPCS: 70450; 99284

== ENCOUNTER 2021-05-10 03:30 | Emergency (ER) | payer MEDICAID ==
[~2021-05-10] VITALS: Ht 188 cm; Wt 68.0 kg
[~2021-05-10 03:30] MED LIST changes: +ONDA8TAB65
[2021-05-10 04:00] VITALS: BP 140/97
== END 2021-05-10 04:01 | disposition home or self-care (01) ==
LOC: ER 03:30
DX: F10.129 Alcohol abuse with intoxication, unspecified (principal); R44.0 Auditory hallucinations; R44.1 Visual hallucinations; J43.9 Emphysema, unspecified; F12.90 Cannabis use, unspecified, uncomplicated; Z72.0 Tobacco use; Z86.69 Personal history of other diseases of the nervous system and sense organs; Z87.01 Personal history of pneumonia (recurrent); Z72.89 Other problems related to lifestyle; Z59.0 Homelessness; Y90.9 Presence of alcohol in blood, level not specified
CPT/HCPCS: 99283

== ENCOUNTER 2021-08-12 02:30 | Emergency (ER) | payer MEDICAID ==
[~2021-08-12] VITALS: Ht 182.9 cm; Wt 63.6 kg
[2021-08-12] MEDS ORDERED: haloperidol lactate 5mg/ml inj ONE (03:10)
[2021-08-12] MEDS ORDERED: diphenhydrAMINE 50 mg/ml inj ONE (03:11)
[2021-08-12 03:17] LABS: BASOPHILS # (AUTO) 0.2 X10'3 (0-0.2); BASOPHILS % (AUTO) 1.4 % (0-1); EOSINOPHILS # (AUTO) 0.3 X10'3 (0-0.9); EOSINOPHILS % (AUTO) 2.9 % (0-6); HEMATOCRIT 35.6 % (42.0-52.0); HEMOGLOBIN 12.7 g/dl (14.0-17.9); LYMPHOCYTES # (AUTO) 1.8 X10'3 (1.1-4.8); LYMPHOCYTES % (AUTO) 16.2 % (21-51); MEAN CORPUSCULAR HEMOGLOBIN 34.7 PG (27.0-31.0); MEAN CORPUSCULAR HGB CONC 35.8 g/dL (33.0-36.5); MEAN CORPUSCULAR VOLUME 96.8 FL (78-98); MEAN PLATELET VOLUME 8.1 FL (7.4-10.4); MONOCYTES # (AUTO) 1.8 X10'3 (0-0.9); MONOCYTES % (AUTO) 16.4 % (2-12); NEUTROPHILS % (AUTO) 63.1 % (42-75); PLATELET COUNT 300 X10'3 (140-440); RED BLOOD COUNT 3.68 X10'6 (4.70-6.10); RED CELL DISTRIBUTION WIDTH 12.8 % (11.5-14.5); WHITE BLOOD COUNT 11.1 X10'3 (4.5-11.0)
--- NOTE | 2021-08-12 03:23 | NUR ---
PT SPITTING AROUND THE ROOM. PT NOT FOLLOWING COMMANDS, RAMBING RANDOM PHRASES AND CONFUSED.
--- NOTE | 2021-08-12 03:32 | NUR ---
UPPER EXT RESTRAINSTS APPLIED PER DR ORDER. PT SITTING IN BED SMILING AT STAFF WITH RANDOM COMMENTS. VSS. PLACED ON HEART MONITOR. BED IN LOW POSITION, DIRECT LINE OF DITE, BLANKET GIVEN.
--- NOTE | 2021-08-12 03:39 | NUR ---
PT TOLERATING UPPER EXTERMITY RESTRAINTS WELL. WILL WAIT TO APPLY LEG RESTRAINTS ONLY IF NECESSARY. MD STEVENS NOTIFIED.
[2021-08-12 03:56] LABS: ALANINE AMINOTRANSFERASE 167 U/L (12-78); ALBUMIN 3.7 G/DL (3.4-5.0); ALKALINE PHOSPHATASE 97 IU/L (46-116); ANION GAP 15 (8-16); ASPARTATE AMINO TRANSFERASE 117 U/L (10-37); BILIRUBIN,TOTAL 1.1 MG/DL (0.1-1.0); BLOOD UREA NITROGEN 5 MG/DL (7-18); BUN/CREATININE RATIO 5.1 (5.4-32.0); CALCIUM 9.2 MG/DL (8.5-10.1); CHLORIDE 92 MMOL/L (99-107); CREATININE 0.98 MG/DL (0.60-1.10); ETHANOL 0.152 GM/DL (0.0-0.010); GLUCOSE 101 MG/DL (70-104); POTASSIUM 4.9 MMOL/L (3.5-5.1); SODIUM 130 MMOL/L (135-145); TOTAL CARBON DIOXIDE 23.5 MMOL/L (24-32); TOTAL PROTEIN 7.4 G/DL (6.4-8.2); eGFR 83 ML/MIN
[2021-08-12 04:17] LABS: HYPERSEGMENTED NEUTROPHILS FEW; PLATELET ESTIMATE NORMAL; SMUDGE CELLS 1+; TOTAL CELLS COUNTED 100
[2021-08-12 04:18] LABS: ANISOCYTOSIS FEW
--- NOTE | 2021-08-12 05:29 | NUR ---
PT SOILED BED, FULL BED CHANGE. REMOVED UPPER ARM RESTRAINTS AND REPOSITIONED, PT ABLE TO STAND AT THE BEDSIDE FOR BED CHANGE AND FOLLOW SIMPLE COMMANDS. PT STATES HE WAS COLD AND MAD. WHEN ASKED WHAT HE WAS MAD ABOUT, PT DID NOT RESPOND AND STARED AT STAFF. WILL DISCUSS WITH MD REGARDING REMOVING RESTRAINTS.
--- NOTE | 2021-08-12 05:38 | NUR ---
PER MD ASSESSMENT, OK TO REMOVE RESTRAINTS. UPPER EXTREMITIES REMOVED, LOWER EXTREMITIY RESTRAINTS NEVER PLACED ON PT.
--- NOTE | 2021-08-12 05:41 | NUR ---
PT RESTING ON LEFT SIDE, NO S/S OF DISTRESS, VSS.
--- NOTE | 2021-08-12 06:38 | NUR ---
ASSUMED PT CARE. PT RESTING, EYES CLOSED. NO COMPLAINTS, NO REQUESTS. BED LOCKED AND LOW.
--- NOTE | 2021-08-12 07:23 | NUR ---
PT GOT OUT OF BED AND AMBULATED WELL W/O ASSISTANCE TO BATHROOM. PT WALKED AROUND THE ER AND WAS REDIRECTED TO ROOM. BEDSIDE. PT WAS ASKED IF HE TOOK ANY DRUGS LAST NIGH AND PT STATED "YES, I TOOK ALL OF THEM". PT WAS PROVIDED CLEAN CLOTHING. PT IS APPROPRIATE HOWEVER HE IS NOT BEING VERY COOPERATIVE WITH QUESTIONS.
--- NOTE | 2021-08-12 07:32 | NUR ---
PT PROVIDED W/ A MEAL AND A TAXI TO [facility]. PT VERBALIZED UNDERSTANDIG OF DC AND AGREES WITH PLAN TO GO TO [facility].
[2021-08-12 08:27] VITALS: BP 119/86
== END 2021-08-12 08:29 | disposition home or self-care (01) ==
LOC: ER 02:30
DX: K72.90 Hepatic failure, unspecified without coma (principal); F19.10 Other psychoactive substance abuse, uncomplicated; Z59.00 Homelessness unspecified
CPT/HCPCS: 36415; 80053; 80320; 82140; 85007; 85025; 85610; 99285; J1200; J1630

== ENCOUNTER 2021-10-22 01:30 | Emergency (ER) | payer MEDICAID ==
[~2021-10-22] VITALS: Ht 188 cm; Wt 72.0 kg
[~2021-10-22 01:30] MED LIST changes: +ONDA-104; -ONDA8TAB65
[2021-10-22 01:36] VITALS: BP 118/83
[2021-10-22] MEDS ORDERED: ondansetron 4mg rapidly disintigrating tab PO ONE (03:20)
[2021-10-22 04:01] LABS: BASOPHILS # (AUTO) 0.1 X10'3 (0-0.2); BASOPHILS % (AUTO) 0.7 % (0-1); EOSINOPHILS % (AUTO) 0.2 % (0-6); HEMATOCRIT 42.8 % (42.0-52.0); LYMPHOCYTES # (AUTO) 0.5 X10'3 (1.1-4.8); LYMPHOCYTES % (AUTO) 5.7 % (21-51); MEAN CORPUSCULAR HEMOGLOBIN 34.2 PG (27.0-31.0); MEAN CORPUSCULAR VOLUME 97.7 FL (78-98); MEAN PLATELET VOLUME 7.8 FL (7.4-10.4); MONOCYTES % (AUTO) 11.9 % (2-12); NEUTROPHILS # (AUTO) 7.2 X10'3 (1.8-7.7); NEUTROPHILS % (AUTO) 81.5 % (42-75); PLATELET COUNT 307 X10'3 (140-440); RED BLOOD COUNT 4.38 X10'6 (4.70-6.10); RED CELL DISTRIBUTION WIDTH 13.4 % (11.5-14.5); WHITE BLOOD COUNT 8.8 X10'3 (4.5-11.0)
[2021-10-22 04:17] LABS: ALANINE AMINOTRANSFERASE 31 U/L (12-78); ALBUMIN 4.8 G/DL (3.4-5.0); ALKALINE PHOSPHATASE 94 IU/L (46-116); ANION GAP 19 (8-16); ASPARTATE AMINO TRANSFERASE 36 U/L (10-37); BILIRUBIN,TOTAL 1.1 MG/DL (0.1-1.0); BLOOD UREA NITROGEN 8 MG/DL (7-18); BUN/CREATININE RATIO 4.9 (5.4-32.0); CALCIUM 10.5 MG/DL (8.5-10.1); CHLORIDE 95 MMOL/L (99-107); CREATININE 1.62 MG/DL (0.60-1.10); GLUCOSE 115 MG/DL (70-104); LIPASE 176 U/L (73-393); POTASSIUM 3.8 MMOL/L (3.5-5.1); SODIUM 140 MMOL/L (135-145); TOTAL CARBON DIOXIDE 25.9 MMOL/L (24-32); TOTAL PROTEIN 9.5 G/DL (6.4-8.2); eGFR 47 ML/MIN
[2021-10-22] MEDS ORDERED: CEPH-585 PO (05:39)
[2021-10-22] MEDS ORDERED: ONDA4TAB6 PO (05:39)
[2021-10-22] MEDS ORDERED: cephalexin 250mg capsule PO ONE (05:40)
== END 2021-10-22 06:07 | disposition home or self-care (01) ==
LOC: ER 01:31
DX: S00.01XA Abrasion of scalp, initial encounter (principal); Z20.822 Contact with and (suspected) exposure to COVID-19; R10.84 Generalized abdominal pain; R11.2 Nausea with vomiting, unspecified; G40.909 Epilepsy, unspecified, not intractable, without status epilepticus; J43.9 Emphysema, unspecified; Z87.01 Personal history of pneumonia (recurrent); F12.90 Cannabis use, unspecified, uncomplicated; Z59.00 Homelessness unspecified; Z72.89 Other problems related to lifestyle; X58.XXXA Exposure to other specified factors, initial encounter; Y93.89 Activity, other specified; Y92.89 Other specified places as the place of occurrence of the external cause; Y99.8 Other external cause status
CPT/HCPCS: 36415; 74176; 80053; 83690; 85025; 87635; 99284; C9803

== ENCOUNTER 2021-11-07 12:57 | Emergency (ER) | payer MEDICAID ==
[~2021-11-07] VITALS: Ht 188 cm; Wt 72.3 kg
[~2021-11-07 12:57] MED LIST changes: +CEPH-585 PO; +ONDA4TAB6 PO
[2021-11-07 22:14] VITALS: BP 136/100
[2021-11-07] MEDS ORDERED: chlordiazePOXIDE 25mg capsule PO ONE (22:20)
== END 2021-11-07 23:10 | disposition home or self-care (01) ==
LOC: ER 12:58
DX: F10.239 Alcohol dependence with withdrawal, unspecified (principal); F41.9 Anxiety disorder, unspecified; R11.2 Nausea with vomiting, unspecified; R10.84 Generalized abdominal pain; J43.9 Emphysema, unspecified; F12.90 Cannabis use, unspecified, uncomplicated; Z86.69 Personal history of other diseases of the nervous system and sense organs; Z72.89 Other problems related to lifestyle; Z59.00 Homelessness unspecified; Z79.2 Long term (current) use of antibiotics; Z79.899 Other long term (current) drug therapy; Y90.9 Presence of alcohol in blood, level not specified
CPT/HCPCS: 99283

== ENCOUNTER 2021-12-17 19:50 | Emergency (ER) | payer MEDICAID ==
[2021-12-17 21:26] VITALS: BP 113/83
--- NOTE | 2021-12-17 21:35 | NUR ---
PT HER FOR TOOTH PAIN, A FEW DAYS AGO IT BROKE WHILE EATING. HE IS UNABLE TO GET INTO ANY DENTIST FOR MONTHS. HE WAS SEEN AT [facility] AND THEY STARTED HIM ON ANTIBIOTICS.
[2021-12-17] MEDS ORDERED: HYDROcodone/acetaminophen 5mg/325mg tablet PO ONE (22:45)
[2021-12-17] MEDS ORDERED: HYDR-3965 PO (22:49)
== END 2021-12-17 23:14 | disposition home or self-care (01) ==
LOC: ER 19:50
DX: K08.89 Other specified disorders of teeth and supporting structures (principal); K02.9 Dental caries, unspecified; J43.9 Emphysema, unspecified; F12.90 Cannabis use, unspecified, uncomplicated; Z59.00 Homelessness unspecified; Z72.89 Other problems related to lifestyle; Z87.01 Personal history of pneumonia (recurrent); Z79.2 Long term (current) use of antibiotics; Z79.899 Other long term (current) drug therapy
CPT/HCPCS: 99283

== ENCOUNTER 2022-06-07 20:26 | Inpatient (IN) | payer MEDICAID ==
[~2022-06-07] VITALS: Ht 188 cm; Wt 77.0 kg
[2022-06-07] MEDS ORDERED: ondansetron/PF 4mg/2ml inj IV ONE (21:15)
[2022-06-07] MEDS ORDERED: morphine 4 MG/ML inj SYRINge IV ONE (21:15)
[2022-06-07] MEDS ORDERED: normal saline 1000ML IV soln IV ONE (21:15)
[2022-06-07 21:32] LABS: BASOPHILS % (AUTO) 0.1 % (0-1); EOSINOPHILS % (AUTO) 0 % (0-6); HEMOGLOBIN 16.1 g/dl (14.0-17.9); LYMPHOCYTES # (AUTO) 0.6 X10'3 (1.1-4.8); LYMPHOCYTES % (AUTO) 5.7 % (21-51); MEAN CORPUSCULAR HEMOGLOBIN 32.3 PG (27.0-31.0); MEAN CORPUSCULAR HGB CONC 34.9 g/dL (33.0-36.5); MEAN CORPUSCULAR VOLUME 92.5 FL (78-98); MEAN PLATELET VOLUME 8.6 FL (7.4-10.4); MONOCYTES # (AUTO) 1.2 X10'3 (0-0.9); MONOCYTES % (AUTO) 11.9 % (2-12); NEUTROPHILS # (AUTO) 8.2 X10'3 (1.8-7.7); NEUTROPHILS % (AUTO) 82.3 % (42-75); PLATELET COUNT 149 X10'3 (140-440); RED BLOOD COUNT 4.97 X10'6 (4.70-6.10)
[2022-06-07] MEDS ORDERED: iohexol 350MG/ML 100ml bottle IV ONE (21:40)
[2022-06-07 21:48] LABS: ALANINE AMINOTRANSFERASE 133 U/L (12-78); ALBUMIN 4.6 G/DL (3.4-5.0); ALBUMIN/GLOBULIN RATIO 1.1 (1.1-1.5); ALKALINE PHOSPHATASE 106 IU/L (46-116); ANION GAP 14 (8-16); ASPARTATE AMINO TRANSFERASE 142 U/L (10-37); BILIRUBIN,TOTAL 1.9 MG/DL (0.1-1.0); BLOOD UREA NITROGEN 29 MG/DL (7-18); BUN/CREATININE RATIO 6.9 (5.4-32.0); CALCIUM 8.9 MG/DL (8.5-10.1); CHLORIDE 85 MMOL/L (99-107); CREATININE 4.19 MG/DL (0.60-1.10); GLUCOSE 181 MG/DL (70-104); POTASSIUM 3.8 MMOL/L (3.5-5.1); SODIUM 132 MMOL/L (135-145); TOTAL PROTEIN 8.7 G/DL (6.4-8.2); eGFR 16 ML/MIN
[2022-06-07 21:50] LABS: LIPASE 745 U/L (73-393)
[2022-06-07] MEDS ORDERED: piperacillin/tazo 3.375gm/50ml 50 ML IV ONE (22:30)
[2022-06-07] MEDS ORDERED: magnesium 4gm in 100ml NS 100 ML IV PRN (23:20)
[2022-06-07] MEDS ORDERED: mag hydrox/Alum hydrox/simeth 30ml oral suspension PO PRN (23:20)
[2022-06-07] MEDS ORDERED: ondansetron/PF 4mg/2ml inj IV PRN (23:20)
[2022-06-07] MEDS ORDERED: magnesium 2GM in 50ml NS 50 ML IV PRN (23:20)
[2022-06-07] MEDS ORDERED: potassium CL 10mEq/100ml bag 100 ML IV PRN (23:20)
[2022-06-07] MEDS ORDERED: magnesium hydroxide 30ml (MOM) UD suspension PO PRN (23:20)
[2022-06-07] MEDS ORDERED: acetaminophen 325mg tablet PO PRN (23:20)
[2022-06-07] MEDS ORDERED: LORazepam 2 mg/ml vial IV ONE (23:25)
[2022-06-08 00:11] LABS: MAGNESIUM 1.6 MG/DL (1.5-2.4); POTASSIUM 3.8 MMOL/L (3.5-5.1)
[2022-06-08] MEDS: normal saline 1000ml 1,000 ML IV SCH ×3 (00:20→16:49)
[2022-06-08 07:26] LABS: BASOPHILS % (AUTO) 0.2 % (0-1); EOSINOPHILS % (AUTO) 0.2 % (0-6); HEMATOCRIT 40.1 % (42.0-52.0); LYMPHOCYTES # (AUTO) 0.6 X10'3 (1.1-4.8); LYMPHOCYTES % (AUTO) 7.5 % (21-51); MEAN CORPUSCULAR HEMOGLOBIN 32.5 PG (27.0-31.0); MEAN CORPUSCULAR HGB CONC 34.8 g/dL (33.0-36.5); MEAN CORPUSCULAR VOLUME 93.3 FL (78-98); MEAN PLATELET VOLUME 8.3 FL (7.4-10.4); MONOCYTES % (AUTO) 11.9 % (2-12); NEUTROPHILS # (AUTO) 6.6 X10'3 (1.8-7.7); NEUTROPHILS % (AUTO) 80.2 % (42-75); PLATELET COUNT 112 X10'3 (140-440); RED CELL DISTRIBUTION WIDTH 14.9 % (11.5-14.5); WHITE BLOOD COUNT 8.2 X10'3 (4.5-11.0)
[2022-06-08 07:50] LABS: ALANINE AMINOTRANSFERASE 122 U/L (12-78); ALBUMIN 3.8 G/DL (3.4-5.0); ALBUMIN/GLOBULIN RATIO 1.1 (1.1-1.5); ALKALINE PHOSPHATASE 82 IU/L (46-116); ANION GAP 15 (8-16); ASPARTATE AMINO TRANSFERASE 131 U/L (10-37); BILIRUBIN,TOTAL 1.8 MG/DL (0.1-1.0); BLOOD UREA NITROGEN 33 MG/DL (7-18); BUN/CREATININE RATIO 8.8 (5.4-32.0); CALCIUM 8.1 MG/DL (8.5-10.1); CHLORIDE 94 MMOL/L (99-107); CREATININE 3.73 MG/DL (0.60-1.10); GLUCOSE 100 MG/DL (70-104); LIPASE 470 U/L (73-393); MAGNESIUM 1.6 MG/DL (1.5-2.4); POTASSIUM 4.3 MMOL/L (3.5-5.1); SODIUM 141 MMOL/L (135-145); TOTAL CARBON DIOXIDE 31.9 MMOL/L (24-32); TOTAL PROTEIN 7.2 G/DL (6.4-8.2); eGFR 18 ML/MIN
--- NOTE | 2022-06-08 07:50 | NUR ---
Called nurse Grazyna to give report, she will call back.
[2022-06-08] MEDS: K and/or MAG REPLACEMENT MC SCH ×2 (08:11→20:00)
[2022-06-08] MEDS: heparin, porcine 5000 units/ml vial SQ SCH ×2 (08:38→20:29)
[2022-06-08] MEDS: thiamine 100mg/ml 2ml inj. IV SCH (08:38)
[2022-06-08] MEDS: docusate sod 100mg capsule PO SCH ×2 (08:42→20:00)
--- NOTE | 2022-06-08 09:11 | NUR ---
Patient transported to Ortho floor via wheelchair.
--- NOTE | 2022-06-08 09:15 | NUR ---
Patient in room ORTHO 4023. I have received report from Vivienne CASTRO and had the opportunity to ask questions and assume patient care.
[2022-06-08 10:00] VITALS: BP 105/71
[2022-06-08] MEDS: CefTRIAXone 2gm/D5W 50ml BAG 50 ML IV SCH (11:21)
[2022-06-08] MEDS: nicotine 14mg patch - 24hr TD SCH (11:30)
[2022-06-08] MEDS: LORazepam 2 mg/ml vial IV PRN (16:48)
--- NOTE | 2022-06-08 17:26 | NUR ---
patient sleeping alot of shift. wok up at 1700hrs c/o anxiety and slightly shaky. medicated with ativan will continue to monitor
[2022-06-08 18:00] VITALS: BP 119/71
--- NOTE | 2022-06-08 18:26 | NUR ---
Problems reprioritized. Patient report given, questions answered & plan of care reviewed with Ashly CASTRO.
[2022-06-08 22:00] VITALS: BP 122/81
[2022-06-09] MEDS: normal saline 1000ml 1,000 ML IV SCH ×4 (00:31→19:26)
[2022-06-09] MEDS: LORazepam 2 mg/ml vial IV PRN ×3 (02:26→20:30)
--- NOTE | 2022-06-09 03:30 | NUR ---
I have reviewed and agree with all interventions, assessments performed and documented by Melissa STAFFORD.
[2022-06-09 06:00] VITALS: BP 131/78
--- NOTE | 2022-06-09 06:25 | NUR ---
received report from donaldo castro
--- NOTE | 2022-06-09 06:27 | NUR ---
Problems reprioritized. Patient report given, questions answered & plan of care reviewed with Kyung CASTRO.
[2022-06-09] MEDS: K and/or MAG REPLACEMENT MC SCH ×3 (07:31→20:00)
[2022-06-09] MEDS: thiamine 100mg/ml 2ml inj. IV SCH (07:47)
[2022-06-09] MEDS: heparin, porcine 5000 units/ml vial SQ SCH (07:49)
[2022-06-09] MEDS: nicotine 14mg patch - 24hr TD SCH (07:50)
[2022-06-09] MEDS: CefTRIAXone 2gm/D5W 50ml BAG 50 ML IV SCH (07:52)
[2022-06-09] MEDS: docusate sod 100mg capsule PO SCH ×2 (08:00→20:00)
[2022-06-09 08:22] LABS: BASOPHILS % (AUTO) 0.5 % (0-1); EOSINOPHILS # (AUTO) 0.1 X10'3 (0-0.9); EOSINOPHILS % (AUTO) 1.3 % (0-6); HEMATOCRIT 34.8 % (42.0-52.0); HEMOGLOBIN 11.8 g/dl (14.0-17.9); LYMPHOCYTES % (AUTO) 21.2 % (21-51); MEAN CORPUSCULAR HEMOGLOBIN 32.5 PG (27.0-31.0); MEAN CORPUSCULAR HGB CONC 33.8 g/dL (33.0-36.5); MEAN PLATELET VOLUME 8.6 FL (7.4-10.4); MONOCYTES # (AUTO) 0.5 X10'3 (0-0.9); MONOCYTES % (AUTO) 11.6 % (2-12); NEUTROPHILS % (AUTO) 65.4 % (42-75); PLATELET COUNT 73 X10'3 (140-440); RED BLOOD COUNT 3.63 X10'6 (4.70-6.10); RED CELL DISTRIBUTION WIDTH 14.8 % (11.5-14.5); WHITE BLOOD COUNT 4.6 X10'3 (4.5-11.0)
[2022-06-09 08:44] LABS: ALANINE AMINOTRANSFERASE 126 U/L (12-78); ALBUMIN 3.3 G/DL (3.4-5.0); ALBUMIN/GLOBULIN RATIO 1.2 (1.1-1.5); ALKALINE PHOSPHATASE 62 IU/L (46-116); ANION GAP 13 (8-16); ASPARTATE AMINO TRANSFERASE 150 U/L (10-37); BILIRUBIN,TOTAL 1.7 MG/DL (0.1-1.0); BLOOD UREA NITROGEN 33 MG/DL (7-18); BUN/CREATININE RATIO 15.1 (5.4-32.0); CALCIUM 7.4 MG/DL (8.5-10.1); CHLORIDE 98 MMOL/L (99-107); CREATININE 2.19 MG/DL (0.60-1.10); GLUCOSE 96 MG/DL (70-104); LIPASE 426 U/L (73-393); MAGNESIUM 1.5 MG/DL (1.5-2.4); POTASSIUM 3.4 MMOL/L (3.5-5.1); SODIUM 141 MMOL/L (135-145); TOTAL CARBON DIOXIDE 29.7 MMOL/L (24-32); TOTAL PROTEIN 6.1 G/DL (6.4-8.2); eGFR 33 ML/MIN
--- NOTE | 2022-06-09 09:49 | NUR ---
Malnutrition consult: Upon assessment pt denies any recent wt loss, only reports vomiting for the last couple of days r/t eating some bad food. Pt states he was eating fine prior to that. No visible signs of muscle or fat wasting observed at bedside. No edema noted. Pt does not meet minimum criteria for malnutrition at this time. Will continue to monitor. Addendum: 06/09/22 at [address] Amended: Links added.
[2022-06-09 10:00] VITALS: BP 126/92
[2022-06-09] MEDS ORDERED: potassium Cl 20 mEq SR tablet PO PRN (10:05)
[2022-06-09] MEDS ORDERED: potassium Cl 40MEQ/1/2NS 520ml 520 ML IV PRN ×2 (10:05)
[2022-06-09] MEDS: potassium Cl 20 mEq SR tablet PO PRN ×2 (10:52→16:37)
[2022-06-09] MEDS ORDERED: loperamide 2mg capsule PO PRN (18:20)
[2022-06-09 18:30] VITALS: BP 135/84
--- NOTE | 2022-06-09 18:43 | NUR ---
Gave report to Nichol MATTHEW.
[2022-06-09 22:00] VITALS: BP 132/83
[2022-06-09] MEDS ORDERED: LORazepam 1 MG tablet PO PRN (23:25)
[2022-06-09] MEDS ORDERED: LORazepam 2 mg/ml vial IV PRN (23:25)
[2022-06-10] MEDS: normal saline 1000ml 1,000 ML IV SCH ×2 (03:25→08:39)
[2022-06-10 06:04] LABS: BASOPHILS % (AUTO) 0.7 % (0-1); EOSINOPHILS # (AUTO) 0.1 X10'3 (0-0.9); EOSINOPHILS % (AUTO) 2.2 % (0-6); HEMATOCRIT 34.9 % (42.0-52.0); HEMOGLOBIN 11.8 g/dl (14.0-17.9); LYMPHOCYTES # (AUTO) 0.9 X10'3 (1.1-4.8); LYMPHOCYTES % (AUTO) 19.7 % (21-51); MEAN CORPUSCULAR HEMOGLOBIN 32.2 PG (27.0-31.0); MEAN CORPUSCULAR HGB CONC 33.8 g/dL (33.0-36.5); MEAN CORPUSCULAR VOLUME 95.3 FL (78-98); MEAN PLATELET VOLUME 8.7 FL (7.4-10.4); MONOCYTES # (AUTO) 0.7 X10'3 (0-0.9); MONOCYTES % (AUTO) 14.5 % (2-12); NEUTROPHILS # (AUTO) 2.8 X10'3 (1.8-7.7); NEUTROPHILS % (AUTO) 62.9 % (42-75); PLATELET COUNT 81 X10'3 (140-440); RED BLOOD COUNT 3.66 X10'6 (4.70-6.10); RED CELL DISTRIBUTION WIDTH 14.7 % (11.5-14.5); WHITE BLOOD COUNT 4.5 X10'3 (4.5-11.0)
[2022-06-10 06:07] LABS: ALANINE AMINOTRANSFERASE 210 U/L (12-78); ALBUMIN 3.4 G/DL (3.4-5.0); ALBUMIN/GLOBULIN RATIO 1.1 (1.1-1.5); ALKALINE PHOSPHATASE 65 IU/L (46-116); ANION GAP 9 (8-16); ASPARTATE AMINO TRANSFERASE 247 U/L (10-37); BILIRUBIN,TOTAL 1.3 MG/DL (0.1-1.0); BLOOD UREA NITROGEN 25 MG/DL (7-18); BUN/CREATININE RATIO 16.9 (5.4-32.0); CALCIUM 8.1 MG/DL (8.5-10.1); CHLORIDE 100 MMOL/L (99-107); CREATININE 1.48 MG/DL (0.60-1.10); GLUCOSE 99 MG/DL (70-104); LIPASE 381 U/L (73-393); MAGNESIUM 1.2 MG/DL (1.5-2.4); POTASSIUM 3.6 MMOL/L (3.5-5.1); SODIUM 136 MMOL/L (135-145); TOTAL CARBON DIOXIDE 27.3 MMOL/L (24-32); TOTAL PROTEIN 6.5 G/DL (6.4-8.2); eGFR 52 ML/MIN
[2022-06-10 07:30] VITALS: BP 143/80
[2022-06-10] MEDS: docusate sod 100mg capsule PO SCH (08:00)
[2022-06-10] MEDS: K and/or MAG REPLACEMENT MC SCH ×2 (08:00)
[2022-06-10] MEDS ORDERED: magnesium Cl slow-release 64mg tablet PO PRN (08:35)
[2022-06-10] MEDS: CefTRIAXone 2gm/D5W 50ml BAG 50 ML IV SCH (08:40)
[2022-06-10] MEDS: nicotine 14mg patch - 24hr TD SCH (08:40)
[2022-06-10] MEDS: thiamine 100mg/ml 2ml inj. IV SCH (08:40)
[2022-06-10] MEDS ORDERED: FOLI0.4T6 PO (09:01)
[2022-06-10] MEDS ORDERED: OMEP20CA15 PO (09:01)
[2022-06-10] MEDS ORDERED: THIA100T70 PO (09:01)
[2022-06-10] MEDS ORDERED: NICO-631 TD (09:01)
--- NOTE | 2022-06-10 09:35 | NUR ---
Patient stable and appropriate for discharge home via taxi. IV removed, all belongings taken from room. New RX e-scripted to preferred pharmacy. All discharge instructions and education given and reviewed with patient, all questions answered.
[2022-06-11] MEDS ORDERED: LORazepam 1 MG tablet PO PRN (23:25)
== END 2022-06-10 09:30 | disposition home or self-care (01) | DRG 282 ==
LOC: ER 20:27 → ED HOLD 23:20 → EDBEDREQ 06-08 04:34 → ORTHO 4S 06-08 09:15
PROVIDERS: ADMIT Internal Medicine; ATTEND Internal Medicine
DX: K85.20 Alcohol induced acute pancreatitis without necrosis or infection (principal); I21.4 Non-ST elevation (NSTEMI) myocardial infarction; D69.6 Thrombocytopenia, unspecified; N17.9 Acute kidney failure, unspecified; E86.0 Dehydration; Z20.822 Contact with and (suspected) exposure to COVID-19; F10.20 Alcohol dependence, uncomplicated; N18.30 Chronic kidney disease, stage 3 unspecified; F17.210 Nicotine dependence, cigarettes, uncomplicated; J43.9 Emphysema, unspecified; Z56.0 Unemployment, unspecified; Z87.738 Personal history of other specified (corrected) congenital malformations of digestive system; Z59.00 Homelessness unspecified
CPT/HCPCS: 36415; 71045; 74176; 80053; 82948; 83690; 83735; 84132; 84145; 84484; 85025; 85610; 87081; 87635; 93005; 99285; C9803; G0378; J0696; J1644; J2060; J2270; J2405; J2543; J3411; J3490; J7030; Q9967

== ENCOUNTER 2022-08-26 10:33 | Emergency (ER) | payer MEDICAID ==
[~2022-08-26] VITALS: Ht 188 cm; Wt 79.0 kg
[~2022-08-26 10:33] MED LIST changes: -CEPH-585 PO; +NICO-631 TD; -NO HOME MEDS; +OMEP20CA15 PO; -ONDA-104; -ONDA4TAB6 PO; +THIA100T70 PO
[2022-08-26 10:45] VITALS: BP 121/88
[2022-08-26 11:13] LABS: BASOPHILS # (AUTO) 0.1 X10'3 (0-0.2); BASOPHILS % (AUTO) 0.8 % (0-1); EOSINOPHILS # (AUTO) 0.4 X10'3 (0-0.9); EOSINOPHILS % (AUTO) 6.5 % (0-6); HEMATOCRIT 45.1 % (42.0-52.0); HEMOGLOBIN 15.8 g/dl (14.0-17.9); LYMPHOCYTES # (AUTO) 1.2 X10'3 (1.1-4.8); LYMPHOCYTES % (AUTO) 18.5 % (21-51); MEAN CORPUSCULAR HEMOGLOBIN 33.3 PG (27.0-31.0); MEAN CORPUSCULAR HGB CONC 35.1 g/dL (33.0-36.5); MEAN CORPUSCULAR VOLUME 95.1 FL (78-98); MEAN PLATELET VOLUME 6.8 FL (7.4-10.4); MONOCYTES # (AUTO) 0.3 X10'3 (0-0.9); MONOCYTES % (AUTO) 4.7 % (2-12); NEUTROPHILS # (AUTO) 4.6 X10'3 (1.8-7.7); NEUTROPHILS % (AUTO) 69.5 % (42-75); PLATELET COUNT 226 X10'3 (140-440); RED BLOOD COUNT 4.74 X10'6 (4.70-6.10); RED CELL DISTRIBUTION WIDTH 13.2 % (11.5-14.5); WHITE BLOOD COUNT 6.6 X10'3 (4.5-11.0)
[2022-08-26 11:28] LABS: ALANINE AMINOTRANSFERASE 26 U/L (12-78); ALBUMIN 4.5 G/DL (3.4-5.0); ALBUMIN/GLOBULIN RATIO 0.9 (1.1-1.5); ALKALINE PHOSPHATASE 93 IU/L (46-116); ANION GAP 11 (8-16); ASPARTATE AMINO TRANSFERASE 36 U/L (10-37); BILIRUBIN,TOTAL 0.5 MG/DL (0.1-1.0); BLOOD UREA NITROGEN 7 MG/DL (7-18); BUN/CREATININE RATIO 7.6 (5.4-32.0); CALCIUM 9.3 MG/DL (8.5-10.1); CHLORIDE 97 MMOL/L (99-107); CREATININE 0.92 MG/DL (0.60-1.10); GLUCOSE 91 MG/DL (70-104); LIPASE 171 U/L (73-393); POTASSIUM 4.3 MMOL/L (3.5-5.1); SODIUM 136 MMOL/L (135-145); TOTAL CARBON DIOXIDE 27.9 MMOL/L (24-32); TOTAL PROTEIN 9.4 G/DL (6.4-8.2); eGFR 89 ML/MIN
[2022-08-26] MEDS ORDERED: ondansetron/PF 4mg/2ml inj IV ONE (12:55)
[2022-08-26] MEDS ORDERED: normal saline 1000ML IV soln IVB ONE (12:55)
[2022-08-26] MEDS ORDERED: morphine 4 MG/ML inj SYRINge IV PRN (12:55)
[2022-08-26] MEDS ORDERED: mag hydrox/Alum hydrox/simeth 30ml oral suspension PO ONE (13:25)
[2022-08-26] MEDS ORDERED: LIDOcaine Viscous 15ml cup MM ONE (13:25)
[2022-08-26] MEDS ORDERED: sucralfate 1 gm tablet PO ONE (13:25)
[2022-08-26 14:09] LABS: CLARITY,URINE CLEAR (Clear); COLOR,URINE YELLOW (Yellow); GLUCOSE, URINE NEGATIVE (Neg); KETONES,URINE NEGATIVE (Neg); LEUKOCYTE ESTERASE ,URINE NEGATIVE (Neg); NITRITES, URINE NEGATIVE (Neg); OCCULT BLOOD,URINE NEGATIVE (Neg); PROTEIN,URINE 30 mg/dl (Neg); UROBILINOGEN,URINE 0.2 E.U/dL (0.2-1.0)
[2022-08-26 14:10] LABS: UA COLLECTION TYPE CLN CATCH MIDSTREAM
[2022-08-26 14:15] LABS: BACTERIA,URINE NONE SEEN /HPF (Neg); MUCUS STRANDS NONE SEEN /LPF (Neg); RBC,URINE NONE SEEN /HPF (0-2); SQUAMOUS EPITHELIAL CELL,UR FEW /LPF (FEW); WBC,URINE 0-4 /HPF (0-4)
[2022-08-26] MEDS ORDERED: SUCR1TAB34 PO (14:17)
== END 2022-08-26 14:42 | disposition home or self-care (01) ==
LOC: ER 10:34
DX: K29.20 Alcoholic gastritis without bleeding (principal); J43.9 Emphysema, unspecified; F12.10 Cannabis abuse, uncomplicated; Z59.00 Homelessness unspecified; Z79.899 Other long term (current) drug therapy
CPT/HCPCS: 36415; 80053; 81001; 83690; 85025; 96361; 96374; 96375; 99284; J2270; J2405; J7030

== ENCOUNTER 2023-03-10 05:08 | Emergency (ER) | payer MEDICAID ==
[~2023-03-10] VITALS: Ht 188 cm; Wt 75.9 kg
[~2023-03-10 05:08] MED LIST changes: +CHLO25CA10 PO; +ONDA4TAB12 PO; +SUCR1TAB34 PO
[2023-03-10 05:20] VITALS: BP 110/82
[2023-03-10] MEDS ORDERED: LORazepam 1 MG tablet PO ONE (06:55)
[2023-03-10 07:30] LABS: BASOPHILS # (AUTO) 0.1 X10'3 (0-0.2); BASOPHILS % (AUTO) 1.1 % (0-1); EOSINOPHILS # (AUTO) 0.2 X10'3 (0-0.9); EOSINOPHILS % (AUTO) 3.7 % (0-6); HEMATOCRIT 43.3 % (42.0-52.0); HEMOGLOBIN 14.9 g/dl (14.0-17.9); LYMPHOCYTES # (AUTO) 1.3 X10'3 (1.1-4.8); LYMPHOCYTES % (AUTO) 23.8 % (21-51); MEAN CORPUSCULAR HEMOGLOBIN 33.2 PG (27.0-31.0); MEAN CORPUSCULAR HGB CONC 34.5 g/dL (33.0-36.5); MEAN CORPUSCULAR VOLUME 96.2 FL (78-98); MONOCYTES # (AUTO) 0.5 X10'3 (0-0.9); MONOCYTES % (AUTO) 9.8 % (2-12); NEUTROPHILS # (AUTO) 3.3 X10'3 (1.8-7.7); NEUTROPHILS % (AUTO) 61.6 % (42-75); PLATELET COUNT 161 X10'3 (140-440); RED BLOOD COUNT 4.51 X10'6 (4.70-6.10); RED CELL DISTRIBUTION WIDTH 14.1 % (11.5-14.5); WHITE BLOOD COUNT 5.4 X10'3 (4.5-11.0)
[2023-03-10 07:31] LABS: CLARITY,URINE CLEAR (Clear); COLOR,URINE YELLOW (Yellow); GLUCOSE, URINE NEGATIVE (Neg); KETONES,URINE NEGATIVE (Neg); LEUKOCYTE ESTERASE ,URINE NEGATIVE (Neg); NITRITES, URINE NEGATIVE (Neg); OCCULT BLOOD,URINE TRACE-INTACT (Neg); PH,URINE 6.5 (4.8-8.0); PROTEIN,URINE 100 mg/dl (Neg)
[2023-03-10 07:35] LABS: UA COLLECTION TYPE CLN CATCH MIDSTREAM
[2023-03-10 07:38] LABS: ALANINE AMINOTRANSFERASE 167 U/L (12-78); ALBUMIN/GLOBULIN RATIO 1.1 (1.1-1.5); ALKALINE PHOSPHATASE 72 IU/L (46-116); ANION GAP 13 (8-16); ASPARTATE AMINO TRANSFERASE 161 U/L (10-37); BILIRUBIN,TOTAL 0.5 MG/DL (0.1-1.0); BLOOD UREA NITROGEN 5 MG/DL (7-18); BUN/CREATININE RATIO 5.9 (10.0-20.0); CALCIUM 9.6 MG/DL (8.5-10.1); CHLORIDE 98 MMOL/L (99-107); CREATININE 0.85 MG/DL (0.60-1.10); ETHANOL 0.177 GM/DL (0.0-0.010); GLUCOSE 93 MG/DL (70-104); POTASSIUM 3.8 MMOL/L (3.5-5.1); SODIUM 138 MMOL/L (135-145); TOTAL CARBON DIOXIDE 27.1 MMOL/L (24-32); TOTAL PROTEIN 7.8 G/DL (6.4-8.2); eGFR > 90 ML/MIN
[2023-03-10 07:38] LABS: BACTERIA,URINE NONE SEEN /HPF (Neg); MUCUS STRANDS NONE SEEN /LPF (Neg); RBC,URINE 0-2 /HPF (0-2); SQUAMOUS EPITHELIAL CELL,UR FEW /LPF (FEW); WBC,URINE 0-4 /HPF (0-4)
[2023-03-10 07:51] LABS: URINE AMPHETAMINE SCREEN NEGATIVE (Neg); URINE BARBITUATE SCREEN POSITIVE (Neg); URINE BENZODIAZEPINES SCREEN NEGATIVE (Neg); URINE CANNABINOID SCREEN POSITIVE (Neg); URINE COCAINE SCREEN NEGATIVE (Neg); URINE METHADONE SCREEN NEGATIVE (Neg); URINE OPIATE SCREEN NEGATIVE (Neg); URINE PHENCYCLIDINE SCREEN NEGATIVE (Neg)
[2023-03-10] MEDS ORDERED: normal saline 1000ml 1,000 ML IV ONE (08:05)
== END 2023-03-10 13:11 | disposition home or self-care (01) ==
LOC: ER 05:10
DX: F10.129 Alcohol abuse with intoxication, unspecified (principal); F12.90 Cannabis use, unspecified, uncomplicated; Z59.00 Homelessness unspecified; Z79.899 Other long term (current) drug therapy; Y90.9 Presence of alcohol in blood, level not specified
CPT/HCPCS: 36415; 80053; 80305; 80320; 81001; 85025; 96360; 99283; J7030

== ENCOUNTER 2025-01-11 06:12 | Inpatient (IN) | payer MEDICAID ==
[~2025-01-11] VITALS: Ht 188 cm; Wt 84.5 kg
[~2025-01-11 06:12] MED LIST changes: +ONDA-243 PO; -ONDA4TAB12 PO
[2025-01-11] MEDS: MIDAZolam 5mg/ml 2ml vial IV ONE (07:20)
[2025-01-11] MEDS: magnesium sulf-water 2g/50mL 50 ML IV ONE (07:21)
[2025-01-11] MEDS: ondansetron/PF 4mg/2ml inj IV ONE (07:21)
[2025-01-11] MEDS: normal saline 1000ML IV soln IVB ONE ×2 (07:21→08:19)
[2025-01-11] MEDS: chlordiazePOXIDE 25mg capsule PO ONE (07:37)
[2025-01-11 07:43] LABS: BASOPHILS % (AUTO) 0.2 % (0-1); EOSINOPHILS % (AUTO) 0 % (0-6); HEMATOCRIT 53.2 % (42.0-52.0); LYMPHOCYTES # (AUTO) 0.4 X10'3 (1.1-4.8); LYMPHOCYTES % (AUTO) 4.4 % (21-51); MEAN CORPUSCULAR HEMOGLOBIN 32.1 PG (27.0-31.0); MEAN CORPUSCULAR HGB CONC 34.9 g/dL (33.0-36.5); MEAN PLATELET VOLUME 8.2 FL (7.4-10.4); MONOCYTES # (AUTO) 0.8 X10'3 (0-0.9); MONOCYTES % (AUTO) 8.6 % (2-12); NEUTROPHILS # (AUTO) 7.7 X10'3 (1.8-7.7); NEUTROPHILS % (AUTO) 86.8 % (42-75); PLATELET COUNT 203 X10'3 (140-440); RED BLOOD COUNT 5.79 X10'6 (4.70-6.10); RED CELL DISTRIBUTION WIDTH 16.1 % (11.5-14.5); WHITE BLOOD COUNT 8.8 X10'3 (4.5-11.0)
[2025-01-11 07:47] LABS: HEMOGLOBIN 18.6 g/dl (14.0-17.9)
[2025-01-11 08:10] LABS: ALANINE AMINOTRANSFERASE 217 U/L (12-78); ALBUMIN 4.9 G/DL (3.4-5.0); ALBUMIN/GLOBULIN RATIO 1.1 (1.1-1.5); ALKALINE PHOSPHATASE 102 IU/L (46-116); ANION GAP 30 (8-16); BILIRUBIN,TOTAL 1.5 MG/DL (0.1-1.0); BLOOD UREA NITROGEN 22 MG/DL (7-18); BUN/CREATININE RATIO 10.3 (10.0-20.0); CALCIUM 9.2 MG/DL (8.5-10.1); CHLORIDE 91 MMOL/L (99-107); CREATININE 2.14 MG/DL (0.60-1.10); GLUCOSE 125 MG/DL (70-104); MAGNESIUM 1.9 MG/DL (1.5-2.4); SODIUM 137 MMOL/L (135-145); TOTAL CARBON DIOXIDE 16.4 MMOL/L (24-32); TOTAL PROTEIN 9.2 G/DL (6.4-8.2); eCRCL 50 ML/MIN; eGFR 33 ML/MIN
[2025-01-11 08:20] LABS: ASPARTATE AMINO TRANSFERASE 195 U/L (10-37); POTASSIUM 4.8 MMOL/L (3.5-5.1)
[2025-01-11] MEDS ORDERED: potassium Cl 40MEQ/1/2NS 520ml 520 ML IV PRN (10:05)
[2025-01-11] MEDS: normal saline 1000ml 1,000 ML IV SCH (10:05)
[2025-01-11] MEDS ORDERED: LORazepam 2 mg/ml vial IV PRN (10:05)
[2025-01-11] MEDS ORDERED: mag hydrox/Alum hydrox/simeth 30ml oral suspension PO PRN (10:05)
[2025-01-11] MEDS ORDERED: haloperidol 5mg tablet PO PRN (10:05)
[2025-01-11] MEDS ORDERED: morphine 2 MG/ML inj. syringe IV PRN (10:05)
[2025-01-11] MEDS ORDERED: haloperidol lactate 5mg/ml inj IM PRN (10:05)
[2025-01-11] MEDS ORDERED: acetaminophen 325mg tablet PO PRN ×2 (10:05)
[2025-01-11] MEDS ORDERED: magnesium Cl slow-release 64mg tablet PO PRN (10:05)
[2025-01-11] MEDS ORDERED: magnesium sulf-water 2g/50mL 50 ML IV PRN (10:05)
[2025-01-11] MEDS ORDERED: ondansetron/PF 4mg/2ml inj IV PRN (10:05)
[2025-01-11] MEDS ORDERED: magnesium sulf-water 4G/100mL 100 ML IV PRN (10:05)
[2025-01-11] MEDS ORDERED: HYDROcodone/acetaminophen 5mg/325mg tablet PO PRN (10:05)
[2025-01-11] MEDS ORDERED: magnesium hydroxide 30ml (MOM) UD suspension PO PRN (10:05)
[2025-01-11] MEDS ORDERED: potassium Cl 20 mEq SR tablet PO PRN (10:05)
[2025-01-11] MEDS: dextrose 5%-1/2 normal saline 1,000 ML IV ONE (10:18)
[2025-01-11 10:48] LABS: LIPASE 77 U/L (16-77)
[2025-01-11] MEDS: folic acid 1mg/0.2ml inj IV SCH (11:23)
[2025-01-11] MEDS: thiamine 100mg/ml 2ml inj. IV SCH (11:23)
[2025-01-11 19:25] VITALS: BP 147/73; RESP 14; TEMP 97.3; O2SAT 98
[2025-01-11] MEDS: docusate sod 100mg capsule PO SCH (20:00)
[2025-01-11] MEDS: guaiFENesin 200 MG/10 ML oral syrup UD cup PO PRN (20:09)
[2025-01-11] MEDS: heparin, porcine 5000 units/ml vial SQ SCH (20:16)
[2025-01-11 22:00] VITALS: BP 110/68; PULSE 59; RESP 24; TEMP 97.5; O2SAT 97
[2025-01-11 22:38] LABS: HEMATOCRIT 44.3 % (42.0-52.0); HEMOGLOBIN 14.7 g/dl (14.0-17.9); MEAN CORPUSCULAR HGB CONC 33.1 g/dL (33.0-36.5); MEAN CORPUSCULAR VOLUME 93.8 FL (78-98); MEAN PLATELET VOLUME 7.8 FL (7.4-10.4); PLATELET COUNT 140 X10'3 (140-440); RED BLOOD COUNT 4.73 X10'6 (4.70-6.10); RED CELL DISTRIBUTION WIDTH 15.9 % (11.5-14.5)
[2025-01-11] MEDS: pantoprazole 40 MG vial IV ONE (22:38)
[2025-01-12] VITALS (8 sets, daily range): BP systolic 98–132; BP diastolic 63–83; PULSE 49–60; RESP 14–19; TEMP 97.4–99.2; O2SAT 96–99
[2025-01-12 02:01] LABS: OCCULT BLOOD STOOL NEGATIVE (Neg)
[2025-01-12] MEDS: LORazepam 1 MG tablet PO PRN (04:03)
[2025-01-12 06:53] LABS: BASOPHILS % (AUTO) 0.4 % (0-1); EOSINOPHILS % (AUTO) 0.7 % (0-6); HEMATOCRIT 42.6 % (42.0-52.0); HEMOGLOBIN 14.3 g/dl (14.0-17.9); LYMPHOCYTES # (AUTO) 1.2 X10'3 (1.1-4.8); LYMPHOCYTES % (AUTO) 20.8 % (21-51); MEAN CORPUSCULAR HEMOGLOBIN 31.7 PG (27.0-31.0); MEAN CORPUSCULAR HGB CONC 33.6 g/dL (33.0-36.5); MEAN CORPUSCULAR VOLUME 94.3 FL (78-98); MEAN PLATELET VOLUME 8.1 FL (7.4-10.4); MONOCYTES # (AUTO) 0.5 X10'3 (0-0.9); MONOCYTES % (AUTO) 9.5 % (2-12); NEUTROPHILS % (AUTO) 68.6 % (42-75); PLATELET COUNT 109 X10'3 (140-440); RED BLOOD COUNT 4.52 X10'6 (4.70-6.10); RED CELL DISTRIBUTION WIDTH 16.2 % (11.5-14.5); WHITE BLOOD COUNT 5.8 X10'3 (4.5-11.0)
[2025-01-12 06:55] LABS: ALANINE AMINOTRANSFERASE 118 U/L (12-78); ALBUMIN 3.2 G/DL (3.4-5.0); ALBUMIN/GLOBULIN RATIO 1.1 (1.1-1.5); ALKALINE PHOSPHATASE 62 IU/L (46-116); ANION GAP 12 (8-16); ASPARTATE AMINO TRANSFERASE 82 U/L (10-37); BILIRUBIN,TOTAL 0.9 MG/DL (0.1-1.0); BLOOD UREA NITROGEN 18 MG/DL (7-18); BUN/CREATININE RATIO 13.6 (10.0-20.0); CALCIUM 7.6 MG/DL (8.5-10.1); CHLORIDE 104 MMOL/L (99-107); CREATININE 1.32 MG/DL (0.60-1.10); GLUCOSE 77 MG/DL (70-104); MAGNESIUM 1.8 MG/DL (1.5-2.4); PHOSPHORUS 1.7 MG/DL (2.3-4.5); POTASSIUM 3.4 MMOL/L (3.5-5.1); SODIUM 140 MMOL/L (135-145); TOTAL CARBON DIOXIDE 23.7 MMOL/L (24-32); eCRCL 81 ML/MIN; eGFR 58 ML/MIN
[2025-01-12] MEDS: multivitamins, therapeutics tablet PO SCH (09:05)
[2025-01-12] MEDS: potassium Cl 20 mEq SR tablet PO PRN (09:06)
[2025-01-12] MEDS: nicotine 14mg patch - 24hr TD SCH (09:07)
[2025-01-12] MEDS: Neutra Phos packet PO SCH (13:06)
[2025-01-12 15:52] LABS: C DIFF ANTIGEN NEGATIVE (NEGATIVE); C DIFF SPECIMEN=DIARRHEA? ACCEPTABLE; C DIFFICILE TOXINS A&B NEGATIVE (Neg)
[2025-01-12] MEDS: loperamide 2mg capsule PO PRN (17:24)
[2025-01-13 02:00] VITALS: BP 131/81; PULSE 46; RESP 15; TEMP 97.6; O2SAT 97
[2025-01-13 06:00] VITALS: BP 134/82; PULSE 56; RESP 12; TEMP 98.7; O2SAT 97
[2025-01-13 07:35] LABS: EOSINOPHILS # (AUTO) 0.1 X10'3 (0-0.9); HEMOGLOBIN 14.1 g/dl (14.0-17.9); LYMPHOCYTES # (AUTO) 1.1 X10'3 (1.1-4.8); MEAN PLATELET VOLUME 7.9 FL (7.4-10.4); MONOCYTES # (AUTO) 0.5 X10'3 (0-0.9); NEUTROPHILS # (AUTO) 3.8 X10'3 (1.8-7.7)
[2025-01-13 07:37] LABS: BASOPHILS % (AUTO) 0.7 % (0-1); EOSINOPHILS % (AUTO) 2.1 % (0-6); HEMATOCRIT 41.6 % (42.0-52.0); LYMPHOCYTES % (AUTO) 20.2 % (21-51); MEAN CORPUSCULAR HGB CONC 33.8 g/dL (33.0-36.5); MEAN CORPUSCULAR VOLUME 94.8 FL (78-98); MONOCYTES % (AUTO) 9.2 % (2-12); NEUTROPHILS % (AUTO) 67.8 % (42-75); PLATELET COUNT 98 X10'3 (140-440); RED BLOOD COUNT 4.39 X10'6 (4.70-6.10); RED CELL DISTRIBUTION WIDTH 16.1 % (11.5-14.5); WHITE BLOOD COUNT 5.5 X10'3 (4.5-11.0)
[2025-01-13 08:00] VITALS: RESP 12; O2SAT 97
[2025-01-13 08:00] LABS: ALANINE AMINOTRANSFERASE 100 U/L (12-78); ALBUMIN 3.2 G/DL (3.4-5.0); ALBUMIN/GLOBULIN RATIO 1.1 (1.1-1.5); ALKALINE PHOSPHATASE 60 IU/L (46-116); ANION GAP 8 (8-16); ASPARTATE AMINO TRANSFERASE 66 U/L (10-37); BILIRUBIN,TOTAL 1.1 MG/DL (0.1-1.0); BLOOD UREA NITROGEN 12 MG/DL (7-18); BUN/CREATININE RATIO 11.2 (10.0-20.0); CALCIUM 8.1 MG/DL (8.5-10.1); CHLORIDE 104 MMOL/L (99-107); CREATININE 1.07 MG/DL (0.60-1.10); GLUCOSE 100 MG/DL (70-104); MAGNESIUM 1.5 MG/DL (1.5-2.4); PHOSPHORUS 2.4 MG/DL (2.3-4.5); POTASSIUM 3.8 MMOL/L (3.5-5.1); SODIUM 138 MMOL/L (135-145); TOTAL CARBON DIOXIDE 26.4 MMOL/L (24-32); eCRCL 100 ML/MIN; eGFR 74 ML/MIN
[2025-01-13] MEDS ORDERED: FOLI1TAB27 PO (10:17)
[2025-01-13] MEDS ORDERED: MULT-25 PO (10:17)
[2025-01-13 11:00] VITALS: BP 130/79; PULSE 57; RESP 16; TEMP 97.7; O2SAT 98
[2025-01-13 15:00] VITALS: O2SAT 98
[2025-01-15] MEDS ORDERED: thiamine 100mg tablet PO SCH (08:00)
[2025-01-16] MEDS ORDERED: folic acid 1mg tablet PO SCH (08:00)
== END 2025-01-13 15:21 | disposition home or self-care (01) | DRG 469 ==
LOC: ER 06:13 → ED HOLD 10:13 → PCU 3S 19:22
PROVIDERS: ADMIT Internal Medicine; ATTEND Internal Medicine
DX: N17.9 Acute kidney failure, unspecified (principal); E87.29 Other acidosis; E86.0 Dehydration; E87.6 Hypokalemia; F17.210 Nicotine dependence, cigarettes, uncomplicated; J43.9 Emphysema, unspecified; R74.01 Elevation of levels of liver transaminase levels; F10.239 Alcohol dependence with withdrawal, unspecified; Z59.00 Homelessness unspecified
CPT/HCPCS: 36415; 80053; 82272; 83605; 83690; 83735; 84100; 85025; 85027; 87081; 87324; 87449; 96374; 96375; 99285; A6258; G0378; J1644; J2250; J2405; J2470; J3411; J3490; J7030

== ENCOUNTER 2025-03-04 18:27 | Emergency (ER) | payer MEDICAID ==
[~2025-03-04] VITALS: Ht 188 cm; Wt 86.4 kg
[~2025-03-04 18:27] MED LIST changes: -CHLO25CA10 PO; +FOLI1TAB27 PO; +MULT-25 PO; -OMEP20CA15 PO; -SUCR1TAB34 PO
--- NOTE | 2025-03-04 19:18 | Physician Documentation ---
History of Present Illness ~ Chief Complaint: See Chief Complaint Stated Complaint: DEHYDRATION Time Seen by MD: 18:47 Primary Medical Doctor: BRANDIN HENSON The patient is Seen today with complaints of alcohol intoxication. Patient states his last drink of alcohol was between 3-5 hours ago. Patient states he had quit drinking for a while but about a week ago started drinking 15 beers a day and then a few days ago has increased up to 30 beers a day. Patient states he has been having significant alcohol withdrawal symptoms each morning and has a have about four beers to take care of said symptoms. Patient does admit to some nausea. Patient has no other concern or complaint at this time. Tetanus within 5 years?: No Medication Reconciliation Allergies: Coded Allergies: No Known Allergies (Unverified , 03/04/25) Scheduled Folic Acid* (Folic Acid*), 1 MG PO DAILY Multivitamin with Folic Acid (Thera Tablet), 1 EACH PO Q24H Nicotine 14 MG Patch* (Habitrol 14 MG Patch*), 1 PATCH TD DAILY Thiamine Mononitrate (Vitamin B-1), 1 TAB PO DAILY Scheduled PRN ONDANSETRON ODT 4mg tablet (Ondansetron Odt), 1 TABLET PO Q6H PRN for nausea/vomiting Past Medical History Past Medical History: Seizures, Emphysema, Pneumonia, *GI/HEPATOBILIARY*, Pancreatitis Past Surgical History: noncontributory Other Past Surgical History: pyloric stenosis Alcohol Use: Alcoholic Drug Use: marijuana Lives with: Family Lives In: Homeless Occupation: employed Review of Systems Constitutional: Denies: chills, fever, weakness Eyes: Denies: pain, blurred vision ENT: Denies: ear pain, nose pain, throat pain, mouth pain Respiratory: Denies: cough, shortness of breath Cardiovascular: Denies: chest pain, palpitations Gastrointestinal: Denies: abdominal pain, nausea, vomiting Genitourinary: Denies: burning, dysuria Male Genitalia: Denies: penile discharge, testicular pain Neurological: Denies: headache, dizziness Musculoskeletal: Denies: pain, swelling Integumentary: Denies: rash, lesions Allergic/Immunologic: Denies: hives, itching Hematologic/Lymphatic: Denies: no symptoms reported Psychiatric: Denies: depression, anxiety Physical Exam Vital Signs: Temperature: 98.1, Source: Oral, Heart Rate: 100, Respiratory Rate: 18, BP: 158/89, Pulse Oximetry: 97, Weight: 86.360 Physical Exam General: Awake and Alert, no acute distress. HEENT: Conjunctiva pink, Sclera clear, Mucus Membranes moist. Neck: Supple without masses and tenderness. Resp: Unlabored. Lungs clear to auscultation bilaterally. Heart: Regular Rate and rhythm, normal S1 and S2 without murmur, rub or gallop. Abdomen: Soft and non tender no organomegaly Extremities: No cyanosis,clubbing or edema. Skin: Warm and Dry. Progress Results/Orders Results/Orders Orders - JOSE SIMPSON PAC Saline Lock (03/04/25 ) Chest,Two Views (03/04/25 19:17) Drug Screen, Urine (03/04/25 19:17) Completed Orders - JOSE SIMPSON PAC Cbc/Diff (03/04/25 19:17) Amylase (03/04/25 19:17) Lipase (03/04/25 19:17) Ethanol (03/04/25 19:17) MG (03/04/25 19:17) Electrocardiogram (03/04/25 19:17) Chest,Two Views (03/04/25 19:17) Prochlorperazine Inj (Compazine Inj) (03/04/25 19:20) Normal Saline 1000ml (Sodium Chloride 10 (03/04/25 19:20) Pantoprazole 40mg Iv (Protonix 40mg Iv) (03/04/25 19:20) Prochlorperazine Inj (Compazine Inj) (03/04/25 20:30) Medications Received in ER Medications (Trade) Dose Ordered Sig/Carmita Route PRN Reason Start Time Stop Time Status Last Admin Dose Admin (sodium chloride 1000ml IV soln) 1,000 ml ONCE ONCE IVB 03/04/25 19:20 03/04/25 19:30 DC 03/04/25 20:28 1,000 ML (Protonix 40mg IV) 40 mg ONCE ONCE IV 03/04/25 19:20 03/04/25 19:30 DC 03/04/25 21:09 40 MG (Compazine inj) 10 mg ONCE STAT IV 03/04/25 20:30 03/04/25 20:41 DC 03/04/25 21:09 10 MG Vital Signs 03/04/25 18:30 Temp 98.1 Pulse 100 Resp 18 B/P (MAP) 158/89 Pulse Ox 97 Laboratory Tests Test 03/04/25 20:14 White Blood Count 6.3 Red Blood Count 4.90 Hemoglobin 15.3 Hematocrit 43.6 Mean Corpuscular Volume 89.0 Mean Corpuscular Hemoglobin 31.3 H Mean Corpuscular Hemoglobin Concent 35.1 Red Cell Distribution Width 13.4 Platelet Count 186 Mean Platelet Volume 7.4 Neutrophils (%) (Auto) 57.0 Lymphocytes (%) (Auto) 30.4 Monocytes (%) (Auto) 6.6 Eosinophils (%) (Auto) 5.4 Basophils (%) (Auto) 0.6 Neutrophils # (Auto) 3.6 Lymphocytes # (Auto) 1.9 Monocytes # (Auto) 0.4 Eosinophils # (Auto) 0.3 Basophils # (Auto) 0.0 CBC Comment Magnesium Level 1.9 Amylase Level 37 Lipase 56 Ethyl Alcohol Level 290 H EKG/XRAY/CT/US/VASC/MRI EKG : Additional Comment EKG interpreted by myself today shows regular rate at 74 beats per minute, normal sinus rhythm, no axis deviation, no ischemia or sign of ST segment elev ation. Chest X-Ray : Additional Comments Chest x-ray interpreted by myself today shows no large effusion, no large infiltrate, normal mediastinum. Medical Decision Making Findings The patient is Seen today with complaints of alcohol intoxication. Patient states his last drink of alcohol was between 3-5 hours ago. Patient states he had quit drinking for a while but about a week ago started drinking 15 beers a day and then a few days ago has increased up to 30 beers a day. Patient states he has been having significant alcohol withdrawal symptoms each morning and has a have about four beers to take care of said symptoms. Patient does admit to some nausea. Patient has no other concern or complaint at this time. Patient was treated with 1 L of normal saline, Compazine 10 mg IV, patient's labs were largely unremarkable other than alcohol level being elevated at almost 300. Patient is feeling much better and shared decision-making utilized with the patient today. Patient given prescription for Librium taper. Patient will return to ED with any worsening, concerning or changing symptoms. Patient will check himself into recovery as soon as possible. Voiced understanding and is in agreement to plan. Differential Dx:Considerations: Intoxication - ETOH, Intoxication - other drug, Sub. Abuse -continuous, Sub. Abuse-intermittent, Cervical spine injury, Dehydration, Encephalopathy, Hepatitis Departure Disposition: HOME / SELF CARE / HOMELESS Impression: Primary Impression: Alcoholic intoxication Qualified Codes: F10.920 - Alcohol use, unspecified with intoxication, uncomplicated Condition: Improved Discharge Instructions: Alcohol Abuse and Dependence Information, Adult, Alcohol Intoxication, [id number] Additional Instructions: Patient was treated with 1 L of normal saline, Compazine 10 mg IV, patient's labs were largely unremarkable other than alcohol level being elevated at almost 300. Patient is feeling much better and shared decision-making utilized with the patient today. Patient given prescription for Librium taper. Patient will return to ED with any worsening, concerning or changing symptoms. Patient will check himself into recovery as soon as possible. Voiced understanding and is in agreement to plan. Referrals: NO PRIMARY CARE PROVIDER (PCP) Prescriptions Chlordiazepoxide Hcl (Librium) 25 Mg Capsule 2 CAP PO Q4H PRN for anxiety for 1 Day, #24 CAP 0 Refills Prov: JOSE SIMPSON PAC 03/04/25 Signature Scribe Signature: No scribe Attestation: No scribe JOSE SIMPSON PAC March 04, 2025 19:17
[2025-03-04] MEDS: proCHLORperazine 10 MG/2 ml inj IM ONE (19:20)
--- NOTE | 2025-03-04 19:32 | ELECTROCARDIOGRAPH REPORT ---
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 Chaparro Sanders Measurements Intervals [place] Rate: 74 P: 54 [place]: 163 QRS: -5 QRSD: 92 T: 59 QT: 405 QTc: 450 Interpretive Statements Sinus rhythm Electronically Signed On 03-09-2025 21:46:[address] Chaparro Sanders Please click the below link to view image of tracing.
[2025-03-04 20:25] LABS: BASOPHILS % (AUTO) 0.6 % (0-1); EOSINOPHILS # (AUTO) 0.3 X10'3 (0-0.9); EOSINOPHILS % (AUTO) 5.4 % (0-6); HEMATOCRIT 43.6 % (42.0-52.0); HEMOGLOBIN 15.3 g/dl (14.0-17.9); LYMPHOCYTES # (AUTO) 1.9 X10'3 (1.1-4.8); LYMPHOCYTES % (AUTO) 30.4 % (21-51); MEAN CORPUSCULAR HEMOGLOBIN 31.3 PG (27.0-31.0); MEAN CORPUSCULAR HGB CONC 35.1 g/dL (33.0-36.5); MEAN PLATELET VOLUME 7.4 FL (7.4-10.4); MONOCYTES # (AUTO) 0.4 X10'3 (0-0.9); MONOCYTES % (AUTO) 6.6 % (2-12); NEUTROPHILS # (AUTO) 3.6 X10'3 (1.8-7.7); PLATELET COUNT 186 X10'3 (140-440); RED CELL DISTRIBUTION WIDTH 13.4 % (11.5-14.5); WHITE BLOOD COUNT 6.3 X10'3 (4.5-11.0)
[2025-03-04] MEDS: normal saline 1000ML IV soln IVB ONE (20:28)
[2025-03-04 20:37] LABS: MAGNESIUM 1.9 MG/DL (1.5-2.4)
--- NOTE | 2025-03-04 21:04 | RADIOLOGY REPORT ---
Clinical History SOB Comparison CHEST XRAY on 06/07/2022, 2 images. Technique: Two chest radiographs were provided for review. Without Contrast AILYN LAW, [id number] FINDINGS: Lungs: Perihilar hazy densities may represent perihilar pneumonia, reactive airways or interstitial process. No pneumothorax, pleural effusion or mass. Heart: Normal in size and configuration. Mediastinum: Within normal limits. Vasculature: Within normal limits. Osseous structures: No evidence for acute fracture. IMPRESSION: Perihilar hazy densities may represent perihilar pneumonia, reactive airways or interstitial process. Unremarkable mediastinum. Normal pulmonary vasculature. This report was electronically signed by Moris Stoll MD on 03/04/2025 9:02:02 PM.
[2025-03-04] MEDS: proCHLORperazine 10 MG/2 ml inj IV STA (21:09)
[2025-03-04] MEDS: pantoprazole 40 MG vial IV ONE (21:09)
[2025-03-04] MEDS ORDERED: CHLO25CA10 PO (21:25)
[2025-03-04 21:57] VITALS: BP 152/80; PULSE 88; RESP 16; TEMP 98.1; O2SAT 98
== END 2025-03-04 21:59 | disposition home or self-care (01) ==
LOC: ER 18:29
DX: F10.129 Alcohol abuse with intoxication, unspecified (principal); E86.0 Dehydration; F12.90 Cannabis use, unspecified, uncomplicated; Z79.899 Other long term (current) drug therapy; Z59.00 Homelessness unspecified; Y90.9 Presence of alcohol in blood, level not specified
CPT/HCPCS: 36415; 71046; 80320; 82150; 83690; 83735; 85025; 93005; 96361; 96374; 96375; 99285; J0780; J2470; J7030

== ENCOUNTER 2025-03-08 23:40 | Emergency (ER) | payer MEDICAID ==
[~2025-03-08] VITALS: Ht 188 cm; Wt 86.1 kg
[~2025-03-08 23:40] MED LIST changes: +CHLO25CA10 PO
[2025-03-08 23:44] VITALS: BP 142/94; PULSE 134; RESP 16; TEMP 98.3; O2SAT 96
== END 2025-03-09 02:39 | disposition left against medical advice (07) ==
LOC: ER 23:40
DX: Z00.8 Encounter for other general examination (principal); Z53.21 Procedure and treatment not carried out due to patient leaving prior to being seen by health care provider

== ENCOUNTER 2025-03-09 17:25 | Emergency (ER) | payer MEDICAID ==
[~2025-03-09] VITALS: Ht 188 cm; Wt 85.7 kg
[2025-03-09 17:30] VITALS: BP 173/99; PULSE 109; RESP 18; O2SAT 96
--- NOTE | 2025-03-09 19:35 | Physician Documentation ---
History of Present Illness ~ Chief Complaint: Medical Clearance Stated Complaint: MED CLEARANCE FOR DETOX Time Seen by MD: 17:44 Primary Medical Doctor: ISAAC HENSON Patient is seen today with complaints of needing medical clearance to [facility] from alcohol. Patient states he did have a six pack of beer this morning but states he has cut way down since his last visit about five days ago. Patient denies any delirium tremens. Patient has no new or other concern or complaint at this time. Tetanus within 5 years?: No Medication Reconciliation Allergies: Coded Allergies: No Known Allergies (Unverified , 03/09/25) Scheduled Folic Acid* (Folic Acid*), 1 MG PO DAILY Multivitamin with Folic Acid (Thera Tablet), 1 EACH PO Q24H Nicotine 14 MG Patch* (Habitrol 14 MG Patch*), 1 PATCH TD DAILY Thiamine Mononitrate (Vitamin B-1), 1 TAB PO DAILY Scheduled PRN Chlordiazepoxide Hcl (Librium), 2 CAP PO Q4H PRN for anxiety ONDANSETRON ODT 4mg tablet (Ondansetron Odt), 1 TABLET PO Q6H PRN for nausea/vomiting Past Medical History Past Medical History: Seizures, Emphysema, Pneumonia, *GI/HEPATOBILIARY*, Pancreatitis Past Surgical History: noncontributory Other Past Surgical History: pyloric stenosis Alcohol Use: Alcoholic Drug Use: marijuana Lives with: Family Lives In: Homeless Occupation: employed Review of Systems Constitutional: Denies: chills, fever, weakness Eyes: Denies: pain, blurred vision ENT: Denies: ear pain, nose pain, throat pain, mouth pain Respiratory: Denies: cough, shortness of breath Cardiovascular: Denies: chest pain, palpitations Gastrointestinal: Denies: abdominal pain, nausea, vomiting Genitourinary: Denies: burning, dysuria Male Genitalia: Denies: penile discharge, testicular pain Neurological: Denies: headache, dizziness Musculoskeletal: Denies: pain, swelling Integumentary: Denies: rash, lesions Allergic/Immunologic: Denies: hives, itching Hematologic/Lymphatic: Denies: no symptoms reported Psychiatric: Denies: depression, anxiety Physical Exam Vital Signs: Temperature: 97.8, Source: Temporal, Heart Rate: 109, Respiratory Rate: 18, BP: 173/99, Pulse Oximetry: 96, Weight: 85.700 Physical Exam General: Awake and Alert, no acute distress. HEENT: Conjunctiva pink, Sclera clear, Mucus Membranes moist. Neck: Supple without masses and tenderness. Resp: Unlabored. Lungs clear to auscultation bilaterally. Heart: Regular Rate and rhythm, normal S1 and S2 without murmur, rub or gallop. Abdomen: Soft and non tender no organomegaly Extremities: No cyanosis,clubbing or edema. Skin: Warm and Dry. Progress Results/Orders Results/Orders Vital Signs 03/09/25 17:30 Temp 97.8 Pulse 109 Resp 18 B/P (MAP) 173/99 Pulse Ox 96 Medical Decision Making Findings Patient is seen today with complaints of needing medical clearance to [facility] recovery program from alcohol. Patient states he did have a six pack of beer this morning but states he has cut way down since his last visit about five days ago. Patient denies any delirium tremens. Patient has no new or other concern or complaint at this time. Patient was given Librium taper to be taken as directed. Patient is medically cleared to [facility]. Patient will return to ED with any worsening, concerning or changing symptoms. Shared decision-making utilized with the pa carol today. Patient is adamant that he will be able to safely use the Librium taper as he states he has only had six beers today and is doing well and his recent level of alcohol use and consumption is significantly reduced over the last week. Differential Dx:Considerations: Include: Intoxication-Alcohol, Intoxication- Other drug, Substance abuse disorder, Alcohol withdrawl syndrom, Hepatitis, Medically stable Departure Disposition: HOME / SELF CARE / HOMELESS Impression: Primary Impression: Alcohol intoxication Qualified Codes: F10.920 - Alcohol use, unspecified with intoxication, uncomplicated Additional Impression: Alcohol withdrawal Qualified Codes: F10.930 - Alcohol use, unspecified with withdrawal, un complicated Condition: Stable Discharge Instructions: Medical Screening Exam Additional Instructions: Patient was given Librium taper to be taken as directed. Patient is medically cleared to [facility]. Patient will return to ED with any worsening, concerning or changing symptoms. Shared decision-making utilized with the patient today. Patient is adamant that he will be able to safely use the Librium taper as he states he has only had six beers today and is doing well and his recent level of alcohol use and consumption is significantly reduced over last week. Referrals: NO PRIMARY CARE PROVIDER (PCP) Prescriptions Chlordiazepoxide Hcl (Librium) 25 Mg Capsule 2 CAP PO Q4H PRN for anxiety for 1 Day, #24 CAP 0 Refills Prov: JOSE SIMPSON PAC 03/09/25 Signature Scribe Signature: No scribe Attestation: No scribe JOSE SIMPSON PAC March 09, 2025 19:35
[2025-03-09 19:53] VITALS: TEMP 97.8
== END 2025-03-09 19:55 | disposition home or self-care (01) ==
LOC: ER 17:26
DX: F10.239 Alcohol dependence with withdrawal, unspecified (principal); J43.9 Emphysema, unspecified; F12.90 Cannabis use, unspecified, uncomplicated; Y90.9 Presence of alcohol in blood, level not specified
CPT/HCPCS: 99283

== ENCOUNTER 2025-05-16 13:46 | Outpatient (CLI) | payer MEDICAID ==
--- NOTE | 2025-05-16 15:31 | RADIOLOGY REPORT ---
MR cervical spine without contrast HISTORY: CERVICALGIA TECHNIQUE: MR was performed with a surface coil at 1.5 T magnet. Sagittal, axial and coronal T1 and T 2-weighted images were obtained. FINDINGS: Motion artifact distracted from the diagnostic quality of the images. Cervical vertebral bodies are normal in height signal intensity and alignment. C2-3 no narrowing of the central canal and neural foramina C3-4 loss of disc height and signal intensity. No narrowing of the central canal and neural foramina C4-5 loss of disc height and signal intensity. Slight narrowing of the left neural foramen by osteoph ytes C5-6 loss of disc height and signal intensity. Effacement of the thecal sac by bulging disc and osteo phytes without cord compression. Slight narrowing of the left neural foramen by osteophytes C6-7 no narrowing of the central canal and neural foramina C7-T1 no narrowing of the central canal and neural foramina Cervical cord normal in size and signal intensity IMPRESSION: 1. Degenerative changes are present at the C4-5 and C5-6 disc space levels with slight effacement of the thecal sac and narrowing of the left neural foramina by bulging disc and osteophytes.
== END 2025-05-16 23:59 | disposition home or self-care (01) ==
LOC: MRI 13:46
PROVIDERS: ATTEND Family Medicine
DX: M47.812 Spondylosis without myelopathy or radiculopathy, cervical region (principal); M54.2 Cervicalgia
CPT/HCPCS: 72141

== ENCOUNTER 2025-07-29 14:30 | Emergency (ER) | payer MEDICAID ==
[~2025-07-29] VITALS: Ht 188 cm; Wt 82.3 kg
--- NOTE | 2025-07-29 14:43 | Physician Documentation ---
History of Present Illness ~ Chief Complaint: Detox Clearance Stated Complaint: WITHDRAWAL Time Seen by MD: 18:02 Primary Medical Doctor: ISAAC HENSON 45-year-old with history of alcohol abuse has been in rehab in the past is here requesting detox as well as clearance to go into [facility] recovery in [place]. Patient has been drinking for approximately 1 month at least 15 Eden beers per day. Patient states that he has had a withdrawal seizure many years ago. Patient's last drink was yesterday early this morning. Patient also states that he has not been able to eat for approximately 1 week due to withdrawal like symptoms. Tetanus within 5 years?: No Medication Reconciliation Allergies: Coded Allergies: quetiapine (Verified Allergy, Mild, 07/29/25) Scheduled Chlordiazepoxide Hcl (Librium), 25 MG PO TID Folic Acid* (Folic Acid*), 1 MG PO DAILY Multivitamin with Folic Acid (Thera Tablet), 1 EACH PO Q24H Naltrexone Hcl (Naltrexone Hcl), 1 TAB PO DAILY Nicotine 14 MG Patch* (Habitrol 14 MG Patch*), 1 PATCH TD DAILY Thiamine Mononitrate (Vitamin B-1), 1 TAB PO DAILY Scheduled PRN Chlordiazepoxide Hcl (Librium), 2 CAP PO Q4H PRN for anxiety Chlordiazepoxide Hcl (Librium), 2 CAP PO Q4H PRN for anxiety ONDANSETRON ODT 4mg tablet (Ondansetron Odt), 1 TABLET PO Q6H PRN for nausea/vomiting Past Medical History Past Medical History: Seizures, Emphysema, Pneumonia, *GI/HEPATOBILIARY*, Pancreatitis Past Surgical History: noncontributory Other Past Surgical History: pyloric stenosis Alcohol Use: Alcoholic Drug Use: marijuana Lives with: Family Lives In: Homeless Occupation: employed Review of Systems All Other Systems at this time: Reviewed and Negative Physical Exam Vital Signs: Temperature: 97.2, Source: Temporal, Heart Rate: 130, Respiratory Rate: 18, BP: 144/96, Pulse Oximetry: 97, Weight: 82.300 Oxygen Flow Rate: 0 Physical Exam General: Alert, mild distress HEENT: moist mucous membranes. Neck: Full range of motion. Respiratory: No respiratory distress speaking in full sentences Chest: No accessory muscle use. Cardiovascular: Appears well perfused Neurologic: Oriented x4. Psychiatric: Normal mood and affect. Skin: Pale color, warm and dry. No edema, no ecchymosis. Progress Results/Orders Results/Orders Completed Orders - TORRES GREEN [employer] Folic Acid Inj. (Folic Acid Inj.) (07/29/25 18:15) Thiamine Inj. (Thiamine Inj.) (07/29/25 18:15) Diazepam Inj (Valium Inj) (07/29/25 18:15) Medications Received in ER Medications (Trade) Dose Ordered Sig/Carmita Route PRN Reason Start Time Stop Time Status Last Admin Dose Admin (Zofran 4mg/2ml vial) 4 mg ONCE ONCE IV 07/29/25 14:40 07/29/25 14:41 DC 07/29/25 18:09 4 MG (0.9% sodium chloride (NS) 1000ml IV soln) 1,000 ml ONCE ONCE IVB 07/29/25 14:40 07/29/25 14:41 DC 07/29/25 18:10 1,000 ML (Protonix 40mg IV) 40 mg ONCE ONCE IV 07/29/25 14:40 07/29/25 14:45 DC 07/29/25 18:10 40 MG (folic acid inj.) 1 mg ONCE ONCE IV 07/29/25 18:15 07/29/25 18:16 DC 07/29/25 19:24 1 MG (thiamine inj.) 100 mg ONCE ONCE IV 07/29/25 18:15 07/29/25 18:16 DC 07/29/25 18:54 100 MG (Valium inj) 10 mg ONCE ONCE IV 07/29/25 18:15 07/29/25 18:16 DC 07/29/25 18:54 10 MG Vital Signs 07/29/25 07/29/25 07/29/25 14:35 18:54 19:00 Temp 97.2 97.2 Pulse 130 110 Resp 18 24 20 B/P (MAP) 144/96 133/88 (103) Pulse Ox 97 94 O2 Flow Rate 0 0 Laboratory Tests Test 07/29/25 15:13 White Blood Count 6.9 Red Blood Count 5.86 Hemoglobin 18.7 *H Hematocrit 53.5 H Mean Corpuscular Volume 91.4 Mean Corpuscular Hemoglobin 32.0 H Mean Corpuscular Hemoglobin Concent 35.0 Red Cell Distribution Width 14.3 Platelet Count 173 Mean Platelet Volume 7.3 L Neutrophils (%) (Auto) 86.1 H Lymphocytes (%) (Auto) 6.8 L Monocytes (%) (Auto) 5.6 Eosinophils (%) (Auto) 1.0 Basophils (%) (Auto) 0.5 Neutrophils # (Auto) 5.9 Lymphocytes # (Auto) 0.5 L Monocytes # (Auto) 0.4 Eosinophils # (Auto) 0.1 Basophils # (Auto) 0.0 CBC Comment Sodium Level 137 Potassium Level 3.9 Chloride Level 93 L Carbon Dioxide Level 24.5 Anion Gap 20 H Blood Urea Nitrogen 4 L Creatinine 1.26 H Estimated GFR/1.73 m2 61 BUN/Creatinine Ratio 3.2 L Glucose Level 78 Calcium Level 9.3 Ammonia 12 Albumin 4.5 Lipase 68 Chemistry Comments Ethyl Alcohol Level 98 H Medical Decision Making Findings 45-year-old male was evaluated for alcohol withdrawal. He was initially tachycardic tremulous. I resuscitated him with multiple fluid boluses gave him Valium folic acid and thiamine. At this time he feels much better in his no longer tachycardic. Feel comfortable discharging him with a tapering Librium dose and naltrexone to help with his ongoing alcohol addiction Departure Disposition: HOME / SELF CARE / HOMELESS Impression: Primary Impression: Alcohol withdrawal syndrome Condition: Stable Discharge Instructions: Alcohol Withdrawal Syndrome Referrals: NO PRIMARY CARE PROVIDER (PCP) Prescriptions Naltrexone Hcl (Naltrexone Hcl) 50 Mg Tablet 1 TAB PO DAILY for 30 Days, #30 TAB 0 Refills Prov: TORRES GREEN NP 07/29/25 Chlordiazepoxide Hcl (Librium) 25 Mg Capsule 25 MG PO TID for alcohol withdrawl for 5 Days, #15 CAP 0 Refills Prov: TORRES GREEN NP 07/29/25 Signature Scribe Signature: nicolas Attestation: Scribed for Torres Green Np by Torres Layton NP . 07/29/25 19:52 DINA JEFFREY NP Jul 29, 2025 14:43 TORRES GREEN NP Jul 29, 2025 19:06
--- NOTE | 2025-07-29 14:49 | ELECTROCARDIOGRAPH REPORT ---
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
[2025-07-29 15:25] LABS: MEAN PLATELET VOLUME 7.3 FL (7.4-10.4); RED CELL DISTRIBUTION WIDTH 14.3 % (11.5-14.5)
[2025-07-29 15:34] LABS: CREATININE 1.26 MG/DL (0.60-1.10); ETHANOL 98 MG/DL (<10); TOTAL CARBON DIOXIDE 24.5 MMOL/L (24-32); eCRCL 84 ML/MIN; eGFR 61 ML/MIN
[2025-07-29] MEDS: ondansetron/PF 4mg/2ml inj IV ONE (18:09)
[2025-07-29] MEDS: normal saline 1000ML IV soln IVB ONE (18:10)
[2025-07-29] MEDS: diazepam inj 5 MG/ML inj. IV ONE (18:54)
[2025-07-29] MEDS: thiamine 100mg/ml 2ml inj. IV ONE (18:54)
[2025-07-29] MEDS: folic acid 1mg/0.2ml inj IV ONE (19:24)
[2025-07-29] MEDS ORDERED: CHLO25CA10 PO (19:27)
[2025-07-29] MEDS ORDERED: NALT50TA5 PO (19:27)
[2025-07-29 19:51] VITALS: BP 135/90; PULSE 85; RESP 20; TEMP 97.8; O2SAT 95
== END 2025-07-29 19:54 | disposition home or self-care (01) ==
LOC: ER 14:31
DX: F10.139 Alcohol abuse with withdrawal, unspecified (principal); J43.9 Emphysema, unspecified; I25.2 Old myocardial infarction; F12.90 Cannabis use, unspecified, uncomplicated; Y90.9 Presence of alcohol in blood, level not specified
CPT/HCPCS: 36415; 80048; 80320; 82140; 83690; 85025; 93005; 96365; 96366; 96375; 99284; J2405; J2470; J3360; J3411; J3490; J7030